=== PATIENT | male | born 1940 | race Caucasian/White ===

== ENCOUNTER 2018-02-04 23:33 | Inpatient (IN) | payer OTHER, MEDICARE ==
[~2018-02-04] VITALS: Ht 162.6 cm; Wt 63.8 kg
[~2018-02-04 23:33] MED LIST: NIFE60TA57 PO; PANT40TA PO; PRED10TA PO
[2018-02-04] MEDS ORDERED: SODIUM CHLORIDE 0.9% 1000ML 1,000 ML IV STA (23:48)
--- NOTE | 2018-02-04 23:49 | EMERGENCY ROOM VISIT NOTE ---
History Report prepared by Sandi: Tyrell Norman Under the Supervision of: Dr. Radha Marr D.O. First contact with patient: 23:42 Chief Complaint: GI ASSESSMENT Stated Complaint: HIP PAIN,BLOOD IN STOOL History of Present Illness The patient is a 77 year old male who presents to the Emergency Room with complaints of intermittent blood in his stool and black stools beginning three days ago. The patient states today he was extremely nauseous, fatigued, and vomited three times prior to arrival. He reports he vomited again in triage. The patient notes his vomit has been black. He states he has also been experiencing mild abdominal pain. The patient reports a history of black lung and he takes prednisone chronically. He notes he also took Excedrin on top of this. The patient states he thinks taking the Excedrin has causes his symptoms. He reports he has a history of vomiting blood, and he was diagnosed with a bleeding stomach ulcer. The patient notes he lost enough blood to need a transfusion. He states he had a history of stomach trouble for the past two years, and he has had a large amount of tests that were normal. The patient denies taking a blood thinner and aspirin. Patient states his first episode of GI bleed was in 1991. Patient denies taking a daily stomach medication. Review of EMR, patient had an admission in 2008 for GI bleed at which time his hemoglobin was 5.4. Source of History: patient Onset: three days ago Quality: other (blood in the stool and black stools) Timing: intermittent Associated Symptoms: + nausea, + vomiting (black), + abdominal pain, + fatigue Review of Systems See HPI for pertinent positives & negatives. A total of 10 systems reviewed and were otherwise negative. Past Medical & Surgical Medical Problems: (1) GI bleed Family History Patient reports no known family medical history. Social History Smoking Status: Never Smoker Current/Historical Medications Scheduled Fluticasone Prop/Salmeterol (Advair Diskus 100/50 60 Dose), 1 PUFF INH BID Prednisone (Prednisone), 10 MG PO DAILY Scheduled PRN Albuterol Hfa (Ventolin Hfa), 2-4 PUFFS INH Q6H PRN for SOB/Wheezing Albuterol Sulf (Proventil 0.083% 2.5MG/3ML), 2.5 MG INH QID PRN for SOB/Wheezing Prednisone (Prednisone), 10 MG PO UD PRN for breathing exacerbation Allergies Coded Allergies: Aspirin (Verified Allergy, Intermediate, HIVES, 02/05/18) Codeine (Verified Allergy, Unknown, "violently ill"., 02/05/18) Physical Exam Vital Signs Date Time Temp Pulse Resp B/P (MAP) Pulse Ox O2 Delivery O2 Flow Rate FiO2 02/05/18 03:14 98 02/05/18 02:54 96 18 95/61 95 Room Air 02/05/18 02:00 96 18 109/64 98 Room Air 02/05/18 01:45 95 18 123/75 95 Room Air 02/05/18 01:01 88 94/67 95 Room Air 02/05/18 00:45 89 18 93/46 94 Room Air 02/04/18 23:51 89 02/04/18 23:36 36.3 96 20 71/44 97 Room Air Physical Exam GENERAL: Pt is vomiting into a bag while being wheeled into the room. The contents are maroon and black. alert, well appearing, well nourished, no distress, non-toxic EYE EXAM: normal conjunctiva, PERRL and EOM's grossly intact OROPHARYNX: no exudate, no erythema, lips, buccal mucosa, and tongue normal and mucous membranes are moist NECK: supple, no nuchal rigidity, no adenopathy, non-tender LUNGS: Decreased breathe sounds, no wheezes, rhonchi, or rales. Normal chest wall mechanics HEART: no murmurs, S1 normal and S2 normal ABDOMEN: abdomen soft, mild generalized abdominal discomfort with no focal tenderness, normo-active bowel sounds, no masses, no rebound or guarding. BACK: Back is symmetrical on inspection and there is no deformity, no midline tenderness, no CVA tenderness. SKIN: Pale, diaphoretic, no rashes and no bruising UPPER EXTREMITIES: upper extremities are grossly normal. Full range of motion, normal pulses. LOWER EXTREMITIES: No pitting edema. Full range of motion, normal pulses. NEURO EXAM: Normal sensorium, cranial nerves II-XII grossly intact, normal speech, no gross weakness of arms, no gross weakness of legs. Medical Decision & Procedures ER Provider Diagnostic Interpretation: X-ray results have been interpreted by me. Chest One view: No cardiomegaly. No effusions. No wide mediastinum. Patchy bilateral infiltrate - improved compared to prior. Radiology results have been interpreted by the [facility] radiologist and reviewed by me. CTA ABDOMEN & PELVIS WITH CONTRAST: Impression: The celiac trunk, superior mesenteric artery, and inferior mesenteric artery are patent. The abdominal aorta demonstrates atherosclerotic calcification but otherwise appears normal. There is no definite evidence of active contrast extravasation. Colonic diverticulosis without definite evidence of diverticulitis. Numerous nodular opacities are seen in the lungs. Recommended correlation with prior thoracic imaging. If no prior imaging is available, consider dedicated chest CT. No evidence of bowel obstruction. Left total hip arthroplasty. Severe multilevel degenerative disc disease and facet arthrosis throughout the lumbar spine. Radiologist: Chico Addison MD Study ready at 0136 and initial results transmitted at 0200. Laboratory Results 02/04/18 23:56 Red Blood Count 2.90, Mean Corpuscular Volume 89.3, Mean Corpuscular Hemoglobin 29.7, Mean Corpuscular Hemoglobin Concent 33.2, Mean Platelet Volume 10.2, Neutrophils (%) (Auto) 73.9, Lymphocytes (%) (Auto) 20.5, Monocytes (%) (Auto) 4.3, Eosinophils (%) (Auto) 0.3, Basophils (%) (Auto) 0.1, Neutrophils # (Auto) 11.83, Lymphocytes # (Auto) 3.28, Monocytes # (Auto) 0.68, Eosinophils # (Auto) 0.05, Basophils # (Auto) 0.01 02/04/18 23:56 Test 02/04/18 23:47 02/04/18 23:56 02/05/18 00:00 Gastric Fluid pH 5-7 Gastric Fluid Occult Blood POS (NEG) White Blood Count 16.00 K/uL (4.8-10.8) Red Blood Count 2.90 M/uL (4.7-6.1) Hemoglobin 8.6 g/dL (14.0-18.0) Hematocrit 25.9 % (42-52) Mean Corpuscular Volume 89.3 fL (80-100) Mean Corpuscular Hemoglobin 29.7 pg (25-34) Mean Corpuscular Hemoglobin Concent 33.2 g/dl (32-36) Platelet Count 251 K/uL (130-400) Mean Platelet Volume 10.2 fL (7.4-10.4) Neutrophils (%) (Auto) 73.9 % Lymphocytes (%) (Auto) 20.5 % Monocytes (%) (Auto) 4.3 % Eosinophils (%) (Auto) 0.3 % Basophils (%) (Auto) 0.1 % Neutrophils # (Auto) 11.83 K/uL (1.4-6.5) Lymphocytes # (Auto) 3.28 K/uL (1.2-3.4) Monocytes # (Auto) 0.68 K/uL (0.11-0.59) Eosinophils # (Auto) 0.05 K/uL (0-0.5) Basophils # (Auto) 0.01 K/uL (0-0.2) RDW Standard Deviation 51.5 fL (36.4-46.3) RDW Coefficient of Variation 16.0 % (11.5-14.5) Immature Granulocyte % (Auto) 0.9 % Immature Granulocyte # (Auto) 0.15 K/uL (0.00-0.02) Red Blood Cell Morphology Unremarkable Prothrombin Time 11.4 SECONDS (9.0-12.0) Prothromb Time International Ratio 1.1 (0.9-1.1) Est Creatinine Clear Calc Drug Dose 50.7 ml/min Estimated GFR () 83.6 Estimated GFR (Non- 72.1 BUN/Creatinine Ratio 70.9 (10-20) Calcium Level 8.1 mg/dl (8.5-10.1) Magnesium Level 2.4 mg/dl (1.8-2.4) Total Bilirubin 0.4 mg/dl (0.2-1) Aspartate Amino Transf (AST/SGOT) 19 U/L (15-37) Alanine Aminotransferase (ALT/SGPT) 29 U/L (12-78) Alkaline Phosphatase 37 U/L (45-117) Pro-B-Type Natriuretic Peptide 2467 pg/ml (0-1800) Total Protein 5.1 gm/dl (6.4-8.2) Albumin 2.4 gm/dl (3.4-5.0) Globulin 2.7 gm/dl (2.5-4.0) Albumin/Globulin Ratio 0.9 (0.9-2) Lipase 263 U/L (73-393) Bedside Hemoglobin 8.2 g/dl (14.0-18.0) Bedside Hematocrit 24 % (42-52) Bedside Sodium 140 mEq/L (135-144) Bedside Potassium 4.2 mEq/L (3.3-5.0) Bedside Chloride 108 mEq/L (101-112) Bedside Total CO2 21 mEq/l (24-31) Anion Gap 16.0 mmol/L (16-25) Bedside Blood Urea Nitrogen 64 mg/dl (7-18) Bedside Creatinine 0.9 mg/dl (0.6-1.3) Bedside Glucose (other) 122 mg/dl (70-99) Bedside Ionized Calcium (Rafita) 1.18 mmol/l (1.12-1.32) Laboratory results per my review. Medications Administered Medications (Trade) Dose Ordered Sig/Cole Route Start Time Stop Time Status Last Admin Dose Admin Sodium Chloride 1,000 ml @ 125 mls/hr Q8H STAT IV 02/04/18 23:48 02/05/18 04:31 DC 02/04/18 23:55 125 MLS/HR Pantoprazole Sodium 80 mg/ Dextrose 120 ml @ 480 mls/hr NOW STAT IV 02/05/18 00:22 02/05/18 00:36 DC 02/05/18 00:38 480 MLS/HR Pantoprazole Sodium 40 mg/ Dextrose 100 ml @ 20 mls/hr Q5H IV 02/05/18 00:30 02/05/18 05:29 DC 02/05/18 00:54 20 MLS/HR ECG Per My Interpretation Indication: vomiting (black) Rate (beats per minute): 92 Rhythm: sinus rhythm Findings: Q waves (V1-V3), RBBB, T-wave inversion (AVL), no acute ischemic change, left axis deviation ED Course 2342: The patient was evaluated in room B11B. A complete history and physical exam was performed. 2348: Ordered Sodium Chloride 1000 ml @ 125 mls/hr IV 2357: I reevaluated the patient. His blood pressure has slightly improved to 93 systolically. 0009: The patient was finished getting undressed. His underwear had maroon, liquid stool in them. 0022: Ordered Pantoprazole Sodium 80mg/Dextrose 120ml @ 480 mls/hr IV 0030: Ordered Pantoprazole Sodium 40mg/Dextrose 100 ml @ 20mls/hr IV 0041: I reevaluated the patient. His blood pressure has improved and he is less pale. I discussed his current test results. 0159: Upon reevaluation, the patient is resting. I discussed the findings and the treatment plan with the patient. He expresses agreement and understanding. The patient will be evaluated for further management. Medical Decision Differential diagnosis includes etiologies such as diverticulosis, AVM, coagulopathy, colitis, inflammatory bowel disease, malignancy, Roxane-De Leon tear, esophagitis, peptic ulcer disease, variceal bleed, gastritis, epistaxis, fissure, hemorrhoids, as well as others were entertained. Patient here initially presenting very ill-appearing and unstable. Was hypotensive on arrival and was actively vomiting. Patient's blood pressure improved with IV fluids, and with improved blood pressure patient's color improved also. Given patient's age and comorbidities and abdominal pain, patient also sent for CT imaging. No other acute abnormalities noted. Given patient's prior episodes of GI bleed secondary to peptic ulcer disease, presentation today with melena and hematemesis, I feel patient likely has a recurrence of an upper GI bleed. Patient started on Protonix bolus and drip, and a type and screen sent. Patient found to have an elevated troponin likely due to demand ischemia. I do not suspect primary ACS. Patient and family aware of her results and need for additional evaluation and were agreeable with plan. Patient hemodynamically stable upon transport out of the emergency room. Medication Reconcilliation Current Medication List: was personally reviewed by me Blood Pressure Screening Patient's blood pressure: Low blood pressure Monitored by hospitalist. Consults Time Called: 015 Consulting Physician: Dr. Alejandre of the [facility] Hospitalist Service Returned Call: [phone] Alejandre of the [facility] Hospitalist Service. The patient will be evaluated for further management. Impression Primary Impression: GI bleed Additional Impressions: Abdominal pain Anemia Dehydration Elevated troponin Critical Care I have personally spent greater than 60 minutes of critical care time in the direct management of this patient. This includes bedside care, interpretation of diagnostic studies, and testing, discussion with consultants, patient, and family members, and other required patient management activities. This 60 minutes is in excess of all separately billable procedures. Scribe Attestation The scribe's documentation has been prepared under my direction and personally reviewed by me in its entirety. I confirm that the note above accurately reflects all work, treatment, procedures, and medical decision making performed by me. Departure Information Dispostion Being Evaluated By Hospitalist Referrals No Doctor, Assigned (PCP) Patient Instructions My [facility] Problem Qualifiers Primary Impression: GI bleed GI bleed type/associated pathology: unspecified gastrointestinal hemorrhage type Qualified Codes: K92.2 - Gastrointestinal hemorrhage, unspecified Additional Impressions: Abdominal pain Abdominal location: generalized Qualified Codes: R10.84 - Generalized abdominal pain Anemia Anemia type: other cause Other causes of anemia: acute posthemorrhagic Qualified Codes: D62 - Acute posthemorrhagic anemia
[2018-02-05] VITALS (19 sets, daily range): BP systolic 91–106; BP diastolic 49–63; PULSE 86–96; TEMP 36.6–37.6; O2SAT 93–100; Ht 162.6 cm; Wt 63.8 kg
[2018-02-05 00:06] LABS: BASO % 0.1 %; BASO ABS # 0.01 K/uL (0-0.2); EOS % 0.3 %; EOS ABS # 0.05 K/uL (0-0.5); HEMATOCRIT 25.9 % (42-52); HEMOGLOBIN 8.6 g/dL (14.0-18.0); IG# 0.15 K/uL (0.00-0.02); LYMPH % 20.5 %; LYMPH ABS # 3.28 K/uL (1.2-3.4); MEAN CELL VOLUME 89.3 fL (80-100); MEAN CORPUSCULAR HEMOGLOBIN 29.7 pg (25-34); MEAN CORPUSCULAR HGB CONC 33.2 g/dl (32-36); MEAN PLATELET VOLUME 10.2 fL (7.4-10.4); MONO % 4.3 %; MONO ABS # 0.68 K/uL (0.11-0.59); NEUT % 73.9 %; NEUT ABS # 11.83 K/uL (1.4-6.5); PLATELET COUNT 251 K/uL (130-400); RED CELL DISTRIBUTION WIDTH SD 51.5 fL (36.4-46.3)
[2018-02-05 00:18] LABS: INR 1.1 (0.9-1.1)
[2018-02-05] MEDS ORDERED: PANTOprazole INJ 80 MG in DEXTROSE 5% 100ML IV STA (00:22)
[2018-02-05] MEDS ORDERED: PANTOprazole INJ 40 MG in DEXTROSE 5% 100ML IV SCH (00:30)
[2018-02-05] MEDS ORDERED: OPTIRAY 320 IV PRN (00:30)
[2018-02-05 00:32] LABS: ALBUMIN 2.4 gm/dl (3.4-5.0); CALCIUM 8.1 mg/dl (8.5-10.1); CREATININE 0.99 mg/dl (0.60-1.40); POTASSIUM 4.3 mmol/L (3.5-5.1); TOTAL PROTEIN 5.1 gm/dl (6.4-8.2)
[2018-02-05] MEDS ORDERED: PRED10TA PO (00:42)
[2018-02-05] MEDS ORDERED: ADVIN10/60 INH (00:43)
[2018-02-05] MEDS ORDERED: VNTHFA/IN INH (00:43)
[2018-02-05] MEDS ORDERED: ALBINS/ INH (00:44)
[2018-02-05 03:05] LABS: ISTAT CREATININE 0.9 mg/dl (0.6-1.3); ISTAT IONIZED CALCIUM 1.18 mmol/l (1.12-1.32); ISTAT POTASSIUM 4.2 mEq/L (3.3-5.0)
[2018-02-05] MEDS ORDERED: POLYETHYLENE (MIRALAX) 17 GM PACK PO PRN (03:15)
[2018-02-05] MEDS ORDERED: ONDANSETRON INJ 2 MG/ML 2 ML VIAL IV PRN (03:15)
[2018-02-05] MEDS ORDERED: MAGNESIUM HYDROXIDE SUSP 30 ML UDC PO PRN (03:15)
[2018-02-05] MEDS ORDERED: ZOLPIDEM TARTRATE 5 MG TAB PO PRN (03:15)
[2018-02-05] MEDS ORDERED: ACETAMINOPHEN 325 MG TAB PO PRN (03:15)
[2018-02-05] MEDS ORDERED: ALUMINUM/MAGNESIUM/SIMETH (MAALOX MAX) 30 ML UDC PO PRN (03:15)
[2018-02-05] MEDS ORDERED: ALBUTEROL 0.083% NEBU SOLN 3 ML VIAL INH PRN (03:30)
--- NOTE | 2018-02-05 03:47 | History and Physical ---
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 He has been so week he has been unable to stand. Patient states that he has had at least two other known GI bleeding episodes in the past. In November 2017 in [facility] he received an upper endoscopy for dysphagia that showed a non bleeding peptic ulcer. Pt states he has been diagnosed with Art Therapy Specialist's Lung and is on daily Prednisone. His prednisone has recently been increased. He is not on a PPI or any GI Prophylaxis. Pt does deny any heartburn or GERD type symptoms. His primary and specialist care has been mostly through [facility]. On the way to the ER pt states he threw up what he thought was dark blood. ROS: No fevers, no chills. He did lose some weight recently (20lbs) but gained it back. SHx: Quit smoking in the . Accompanied by son and . Past Medical/Surgical History Medical Problems: (1) GI bleed Family History Patient reports no known family medical history. Social History Smoking Status: Never Smoker Smokeless Tobacco Use: No Alcohol Use: none Drug Use: none Occupational Status: retired Immunizations History of Influenza Vaccine: No Influenza Vaccine Date: Jun 28, 2009 History of Tetanus Vaccine?: No History of Pneumococcal: Yes Pneumococcal Date: Jun 28, 2009 History of Hepatitis B Vaccine: No Allergies Coded Allergies: Aspirin (Verified Allergy, Intermediate, HIVES, 02/05/18) Codeine (Verified Allergy, Unknown, "violently ill"., 02/05/18) Home Medications Scheduled Fluticasone Prop/Salmeterol (Advair Diskus 100/50 60 Dose), 1 PUFF INH BID Prednisone (Prednisone), 10 MG PO DAILY Scheduled PRN Albuterol Hfa (Ventolin Hfa), 2-4 PUFFS INH Q6H PRN for SOB/Wheezing Albuterol Sulf (Proventil 0.083% 2.5MG/3ML), 2.5 MG INH QID PRN for SOB/Wheezing Prednisone (Prednisone), 10 MG PO UD PRN for breathing exacerbation Review of Systems Constitutional: No fever ENT: No hearing loss Respiratory: + cough, + shortness of breath, + dyspnea on exertion Cardiovascular: No chest pain, No orthopnea Abdomen: No pain, No nausea, No diarrhea Musculoskeletal: No joint pain Genitourinary - Male: No hematuria Physical Exam Vital Signs Date Time Temp Pulse Resp B/P (MAP) Pulse Ox O2 Delivery O2 Flow Rate FiO2 02/05/18 03:14 98 02/05/18 02:54 96 18 95/61 95 Room Air 02/05/18 02:00 96 18 109/64 98 Room Air 02/05/18 01:45 95 18 123/75 95 Room Air 02/05/18 01:01 88 94/67 95 Room Air 02/05/18 00:45 89 18 93/46 94 Room Air 02/04/18 23:51 89 02/04/18 23:36 36.3 96 20 71/44 97 Room Air General Appearance: WD/WN, no apparent distress, + thin Head: normocephalic, atraumatic Eyes: normal inspection, PERRL, EOMI ENT: normal ENT inspection, hearing grossly normal, pharynx normal Neck: supple, no adenopathy Respiratory/Chest: chest non-tender, no respiratory distress, no accessory muscle use, + pertinent finding (rhonchorous lung sounds on the right side) Cardiovascular: regular rate, rhythm, no edema, no gallop, no JVD, no murmur, normal peripheral pulses Abdomen/GI: normal bowel sounds, non tender, soft, no organomegaly, no pulsatile mass, normal rectal exam, occult blood negative Back: normal inspection, no CVA tenderness Extremities/Musculoskelatal: normal inspection, no calf tenderness, normal capillary refill, no pedal edema, normal range of motion Neurologic/Psych: inspector 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 tested, no motor/sensory deficits, alert, normal mood/affect, normal reflexes, oriented x 3 Diagnostics Laboratory Results Results Past 24 Hours Test 02/04/18 23:47 02/04/18 23:56 02/05/18 00:00 Range/Units Gastric Fluid pH 5-7 Gastric Fluid Occult Blood POS NEG White Blood Count 16.00 4.8-10.8 K/uL Red Blood Count 2.90 4.7-6.1 M/uL Hemoglobin 8.6 14.0-18.0 g/dL Hematocrit 25.9 42-52 % Mean Corpuscular Volume 89.3 80-100 fL Mean Corpuscular Hemoglobin 29.7 25-34 pg Mean Corpuscular Hemoglobin Concent 33.2 32-36 g/dl Platelet Count 251 130-400 K/uL Mean Platelet Volume 10.2 7.4-10.4 fL Neutrophils (%) (Auto) 73.9 % Lymphocytes (%) (Auto) 20.5 % Monocytes (%) (Auto) 4.3 % Eosinophils (%) (Auto) 0.3 % Basophils (%) (Auto) 0.1 % Neutrophils # (Auto) 11.83 1.4-6.5 K/uL Lymphocytes # (Auto) 3.28 1.2-3.4 K/uL Monocytes # (Auto) 0.68 0.11-0.59 K/uL Eosinophils # (Auto) 0.05 0-0.5 K/uL Basophils # (Auto) 0.01 0-0.2 K/uL RDW Standard Deviation 51.5 36.4-46.3 fL RDW Coefficient of Variation 16.0 11.5-14.5 % Immature Granulocyte % (Auto) 0.9 % Immature Granulocyte # (Auto) 0.15 0.00-0.02 K/uL Red Blood Cell Morphology Unremarkable Prothrombin Time 11.4 9.0-12.0 SECONDS Prothromb Time International Ratio 1.1 0.9-1.1 Sodium Level 142 136-145 mmol/L Potassium Level 4.3 3.5-5.1 mmol/L Chloride Level 111 98-107 mmol/L Carbon Dioxide Level 21 21-32 mmol/L Anion Gap 10.0 16.0 16-25 mmol/L Blood Urea Nitrogen 70 7-18 mg/dl Creatinine 0.99 0.60-1.40 mg/dl Est Creatinine Clear Calc Drug Dose 50.7 ml/min Estimated GFR () 83.6 Estimated GFR (Non- 72.1 BUN/Creatinine Ratio 70.9 10-20 Random Glucose 121 70-99 mg/dl Calcium Level 8.1 8.5-10.1 mg/dl Magnesium Level 2.4 1.8-2.4 mg/dl Total Bilirubin 0.4 0.2-1 mg/dl Aspartate Amino Transf (AST/SGOT) 19 15-37 U/L Alanine Aminotransferase (ALT/SGPT) 29 12-78 U/L Alkaline Phosphatase 37 45-117 U/L Troponin I 0.080 0-0.045 ng/ml Pro-B-Type Natriuretic Peptide 2467 0-1800 pg/ml Total Protein 5.1 6.4-8.2 gm/dl Albumin 2.4 3.4-5.0 gm/dl Globulin 2.7 2.5-4.0 gm/dl Albumin/Globulin Ratio 0.9 0.9-2 Lipase 263 73-393 U/L Bedside Hemoglobin 8.2 14.0-18.0 g/dl Bedside Hematocrit 24 42-52 % Bedside Sodium 140 135-144 mEq/L Bedside Potassium 4.2 3.3-5.0 mEq/L Bedside Chloride 108 101-112 mEq/L Bedside Total CO2 21 24-31 mEq/l Bedside Blood Urea Nitrogen 64 7-18 mg/dl Bedside Creatinine 0.9 0.6-1.3 mg/dl Bedside Glucose (other) 122 70-99 mg/dl Bedside Ionized Calcium (Rafita) 1.18 1.12-1.32 mmol/l Impression Assessment and Plan 77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 Started on a PPI Drip. GI consulted. Upper GI Bleed (HgB of 8.6-->8.2) Patient was recently scoped in [facility] in November and was told he had non bleeding resolving peptic ulcer. He has recently increased his steroids for his lung disease and doesn't take a PPI. 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 IV PPI Drip. Appreciate GI Recs (Yash last saw pt in 2008 and are reconsulted). NPO + IVF H&H Q6H. Art Therapy Specialist's Lung Not on O2 at home. No Oxygen requirement here. X-ray results show numerous chronic fibrotic lung changes - will get a Chest CT. Duonebs Q6H Scheduled. + Albuterol PRN, Pulmicort BID. Per discussion with Attending will add on IV Hydrocort 100mg Q8 x 3 days and Rocephin for empiric Abx treatment of Pneumonia, follow up gram stain and culture of sputum. Elevated Troponins Likely 2/2 to demand, will repeat at 6am. Dispo: Admit to tele. DVT Proph: SCDs Diet: NPO + IVF of 75mls/hr , FULL CODE Attending addendum: I have physically seen this patient, have supervised the medical residents activities, and agree with the H&P unless as otherwise noted. Assessment and Plan: Upper GI bleed/anemia-- N.p.o. Present GI bleeding likely caused by increased oral prednisone use. Continue Protonix drip begun in the ED. H&H every 6 hours. NSS at 75 mils per hour. Type and screen, does not need transfusions at this time. Consult gastroenterology. 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 Differential includes granulomatous disease versus primary lung malignancy versus metastatic disease. Consult pulmonology. Duonebs every 6 hours while awake and every 2 hours when necessary Vancomycin IV and Zosyn IV per pharmacokinetic monitoring. Sputum Gram stain and culture. Adrenal insufficiency-- Hold oral prednisone. Placed on stress dose hydrocortisone 100 mg IV every 8 hours. Remainder of orders and notes as above. Advanced Directives Existing Advance Directive: No Existing Living Will: No Existing Power of Sales Development Associate: No Resuscitation Status VTE Prophylaxis Will order VTE Prophylaxis: Yes Resident Involvement: Resident Care Provided Care Provided: Adult Hospital Medicine
[2018-02-05] MEDS: SODIUM CHLORIDE 0.9% 1000ML 1,000 ML IV SCH ×2 (05:09→17:03)
[2018-02-05] MEDS: PANTOprazole INJ 40 MG in DEXTROSE 5% 100ML IV SCH ×4 (05:09→21:42)
[2018-02-05] MEDS ORDERED: VANCOMYCIN CONSULT ACTIVE PRN (05:30)
[2018-02-05] MEDS ORDERED: VANCOMYCIN IV 1,000 MG in SODIUM CHLORIDE 0.9% 250ML 250 ML IV STA (05:30)
[2018-02-05] MEDS ORDERED: PIPERACILL/TAZOBAC CONSULT ACTIVE PRN (05:30)
[2018-02-05] MEDS ORDERED: PIPERACILL/TAZOBAC IV 3.375 GM in D5W 100 ML IV ONE (06:00)
[2018-02-05] MEDS ORDERED: VANCOMYCIN IV 1,500 MG in SODIUM CHLORIDE 0.9% 500ML 500 ML IV SCH (06:00)
[2018-02-05] MEDS ORDERED: PIPERACILL/TAZOBAC IV 3.375 GM in DEXTROSE 5% 100ML 100 ML IV SCH (06:00)
[2018-02-05] MEDS ORDERED: CEFTRIAXONE SOD INJ 1 GM in DEXTROSE 5% ADD-VANTAGE 50ML 50 ML IV SCH (06:00)
--- NOTE | 2018-02-05 06:35 | DIAGNOSTIC IMAGING REPORT ---
CHEST ONE VIEW PORTABLE CLINICAL HISTORY: 77 years-old Male presenting with vomiting. TECHNIQUE: Portable upright AP view of the chest was obtained. COMPARISON: Chest x-ray from 06/27/2009. FINDINGS: Cardiomediastinal silhouette normal. Diffusely heterogeneous lung parenchyma. Upper to mid predominant nodular opacities. Superimposed focal masslike opacity in the left upper lung, which was present on prior exam. Less well-defined masslike opacity in the right upper lung. No large effusion or pneumothorax. Evidence of old right rib fractures. Degenerative changes of the spine. IMPRESSION: 1. Chronic upper lobe predominant infiltrates with masslike upper lobe consolidation. 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 Please see separately dictated CT chest. Background emphysematous changes. No superimposed opacity to suggest pneumonia. Electronically signed by: Marek Marina M.D. 02/05/2018 6:34 AM Dictated Date/Time: 02/05/2018 6:30 AM
--- NOTE | 2018-02-05 07:03 | DIAGNOSTIC IMAGING REPORT ---
ANGIO ABD/PELVIS WITH CONTRAST CLINICAL HISTORY: 77 years-old Male presenting with bloody and black tarry stools, diffuse abdominal pain, nausea and vomiting. TECHNIQUE: Multidetector CT angiography of the abdomen and pelvis was performed after the administration of intravenous contrast. 3-D volumetric and/or maximum intensity projection (MIP) images were subsequently reconstructed for review. IV contrast: 93 mL of Optiray 320. A dose lowering technique was used consistent with the principles of ALARA (as low as reasonably achievable). Stenosis measurements were based on NASCET-like criteria. COMPARISON: None. CT DOSE (mGy.cm): The estimated cumulative dose is 304.82 mGy.cm. 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 Vasculature: Abdominal aorta and major branch vessels widely patent. Calcified atherosclerotic plaque in the proximal aspect of the more inferior left renal artery without significant stenosis. 2 renal arteries are noted bilaterally. Bilateral common, internal, and external iliac arteries widely patent. Common, superficial, and deep femoral arteries also patent in their proximal portions. Conventional hepatic arterial anatomy. Allowing for the single phase of contrast no evidence of active extravasation within the bowel lumen or elsewhere. Remaining abdomen and pelvis: Lung bases: Diffuse nodular opacities on background of emphysema. This is more fully characterized on chest CT. Normal heart size. No pericardial or pleural effusion. Liver: Normal morphology. No lesions allowing for early arterial phase of contrast. Patent hepatic artery. Biliary: No gross evidence of biliary ductal dilatation allowing for the phase of contrast. Normal gallbladder. Pancreas: Normal. Spleen: Lobular hypodensity in the spleen possibly lymphangioma or hamartoma. Adrenal glands: Normal. Kidneys and ureters: Normal. No hydronephrosis. Bladder: Normal. Pelvic organs: Prostate enlargement likely secondary to benign prostatic hyperplasia. Bowel: Limited diverticulosis of the proximal sigmoid colon. No pericolonic inflammatory change. Few diverticula also noted in the descending colon. Hyperdense linear focus in the ascending colon immediately proximal to the hepatic flexure (series real image 184). Few additional similar foci noted in the mid ascending colon (series 3 image 206). Density as intravascular contrast and are intimately associated with the bowel wall. These foci are the same No bowel obstruction. Small hiatal hernia. Peritoneal cavity: No free fluid or intraperitoneal gas. Lymph nodes: No enlarged lymph nodes in the abdomen or pelvis. Abdominal wall: Normal. Musculoskeletal: Postsurgical changes of total left hip arthroplasty. Mild degenerative changes of the right hip. Degenerative changes of the sacroiliac joints and spine. IMPRESSION: 1. Few small foci of hyperdensity in the ascending colon raise concern for foci of angiodysplasia. Evaluation for hemorrhage limited by the single phase of contrast. No other sites of possible extravasation. This finding was not discussed on the preliminary report. 2. Chronic lung disease characterized on chest CT. Please see separately dictated report. 3. Prostatomegaly. The report will be called/faxed according to standard departmental protocol. Electronically signed by: Marek Marina M.D. 02/05/2018 7:02 AM Dictated Date/Time: 02/05/2018 6:51 AM
[2018-02-05] MEDS: BUDESONIDE 0.5 MG/2 ML VIAL (PULMICORT) INH SCH ×2 (07:08→19:22)
[2018-02-05] MEDS: ALBUT/IPRATROP 3MG/0.5MG NEB 3 ML VIAL INH SCH ×3 (07:08→19:22)
[2018-02-05 07:23] LABS: HEMATOCRIT 19.6 % (42-52); HEMOGLOBIN 6.5 g/dL (14.0-18.0)
[2018-02-05] MEDS ORDERED: SODIUM CHLORIDE 0.9% 500ML 500 ML IV ONE (07:30)
[2018-02-05] MEDS: FLUTICASONE/SALMETEROL 100/50 (ADVAIR) 14 PUFF/1 INHALER INH SCH ×2 (08:01→20:24)
--- NOTE | 2018-02-05 08:25 | Pharmacy Progress Note ---
Pharmacy Abx Dose Short Note Date of Service Feb 05, 2018. Assessment & Plan A/P Pt being initiated on Vanco/Zosyn for r/o pulmonary source. MRSA nares and sputum cx both currently pending at this juncture. Vanco: He did receive Vanco 1500mg (26mg/kg) loading dose this AM at 0600. Pt population p'kinetics; t1/2=15hrs, ke=0.0467. Will start Vanco 750mg (13mg/kg) q16. Will use slightly aggressive dosing interval due to smaller mg/kg dose. Will also start maintenance dose 2 hours early. Vanco trough ordered for @0130, prior to the third maintenance dose. Goal trough: 15-20mcg/mL for pulmonary source. Zosyn: Appropriately dosed based on pt's clinical picture and renal fxn. Pharmacy will continue to follow and will adjust dose/frequency as necessary. Thank you.
--- NOTE | 2018-02-05 08:29 | DIAGNOSTIC IMAGING REPORT ---
(CHEST) THORAX WITHOUT CLINICAL HISTORY: 77 years-old Male presenting with abnormal CXR and CT abdomen/pelvis. TECHNIQUE: Multidetector CT imaging of the chest was performed without the use of intravenous contrast. IV contrast: None. A dose lowering technique was used consistent with the principles of ALARA (as low as reasonably achievable). COMPARISON: Chest x-ray from 2009. CT DOSE (mGy.cm): The estimated cumulative dose is 213.10 mGy.cm. 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 Bilateral upper lobe predominant dense opacities on the left. On soft tissue windows, 13 mm slightly hypodense nodule in the right lobe of the thyroid. Bilateral gynecomastia. Prominent subcentimeter mediastinal lymph nodes. These do not demonstrate calcification. Evaluation of the yumiko limited due to lack of intravenous contrast. Atherosclerosis of the aorta. Normal heart size. Minimal coronary artery and aortic valve calcification. No pericardial or pleural effusion. Excreted contrast noted in the bilateral urinary collecting systems. On lung windows, emphysema. Masslike consolidation in the upper lobes with internal calcification. Diffuse central predominant nodular opacities involving both lungs. Extensive architectural distortion indicating scarring. Bronchiectasis evident within areas of consolidation. Central airways patent. On bone windows, degenerative changes of the spine. Evidence of old bilateral rib fractures. Degenerative changes of the glenohumeral joints. IMPRESSION: 1. 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 This is most consistent with silicosis given the presence of calcification within the massive fibrosis. Other diagnostic considerations include pneumoconiosis or respiratory talcosis. 2. Background emphysema. 3. 13 mm right thyroid lobe nodule. This could be further evaluated with ultrasound on a nonurgent basis. Electronically signed by: Marek Marina M.D. 02/05/2018 8:28 AM Dictated Date/Time: 02/05/2018 8:22 AM
--- NOTE | 2018-02-05 08:53 | Family Medicine Progress Note ---
Progress Note Date of Service Feb 05, 2018. Subjective Pt evaluation today including: conversation w/ patient Voiding: no voiding problems Feels okay as long as laying in bed Short of breath , light headed with activity. Has a history of GI bleeds, stomach issues (has been scoped a few times per patient and only recent identified a non bleeding ulcer) Constitutional: + weakness, + fatigue, No fever, No chills, No sweats, No weight loss ENT: No hearing loss Respiratory: No cough, No sputum, No wheezing, No shortness of breath, No dyspnea on exertion Cardiovascular: No chest pain Abdomen: No pain, No nausea, No diarrhea Male : No dysuria, No urinary frequency Heme: + abnormal bleeding/bruising, No night sweats Medications Medications (Trade) Dose Ordered Sig/Cole Route Start Time Stop Time Status Last Admin Dose Admin Sodium Chloride 1,000 ml @ 125 mls/hr Q8H STAT IV 02/04/18 23:48 02/05/18 04:31 DC 02/04/18 23:55 125 MLS/HR Pantoprazole Sodium 80 mg/ Dextrose 120 ml @ 480 mls/hr NOW STAT IV 02/05/18 00:22 02/05/18 00:36 DC 02/05/18 00:38 480 MLS/HR Pantoprazole Sodium 40 mg/ Dextrose 100 ml @ 20 mls/hr Q5H IV 02/05/18 00:30 02/05/18 05:29 DC 02/05/18 00:54 20 MLS/HR Sodium Chloride 1,000 ml @ 75 mls/hr [id number] IV 02/05/18 05:00 03/07/18 04:59 02/05/18 05:09 75 MLS/HR Salmeterol Xinafoate/ Fluticasone (Advair Diskus 100/50 Inh) 1 puff BID INH 02/05/18 09:00 03/07/18 08:59 02/05/18 08:01 1 PUFF Albuterol/ Ipratropium (Duoneb) 3 ml Q6R INH 02/05/18 09:00 03/07/18 08:59 02/05/18 07:08 3 ML Budesonide (Pulmicort Respules 0.5MG/ 2ML Neb Soln) 0.5 mg BIDR INH 02/05/18 08:00 8/13/18 07:59 02/05/18 07:08 0.5 MG Pantoprazole Sodium 40 mg/ Dextrose 100 ml @ 20 mls/hr Q5H IV 02/05/18 05:30 03/07/18 05:29 02/05/18 05:09 20 MLS/HR Vancomycin HCl 1500 mg/Sodium Chloride 530 ml @ 200 mls/hr TODAY@0600 IV 02/05/18 06:00 02/05/18 08:38 02/05/18 05:57 200 MLS/HR Piperacillin Sod/ Tazobactam Sod 3.375 gm/Dextrose 115 ml @ 230 mls/hr NOW ONCE IV 02/05/18 06:00 02/05/18 06:29 DC 02/05/18 05:58 230 MLS/HR Sodium Chloride 500 ml @ 999 mls/hr Q31M ONCE IV 02/05/18 07:30 02/05/18 08:00 DC 02/05/18 07:56 999 MLS/HR Objective Vital Signs Date Time Temp Pulse Resp B/P (MAP) Pulse Ox O2 Delivery O2 Flow Rate FiO2 02/05/18 07:08 90 16 98 Room Air 02/05/18 06:56 36.6 89 24 94/57 (69) 98 Room Air 02/05/18 05:18 36.6 96 20 95/63 98 Room Air 02/05/18 04:00 96 18 92/59 95 Room Air 02/05/18 03:14 98 02/05/18 02:54 96 18 95/61 95 Room Air 02/05/18 02:00 96 18 109/64 98 Room Air 02/05/18 01:45 95 18 123/75 95 Room Air 02/05/18 01:01 88 94/67 95 Room Air 02/05/18 00:45 89 18 93/46 94 Room Air 02/04/18 23:51 89 02/04/18 23:36 36.3 96 20 71/44 97 Room Air Physical Exam General Appearance: no apparent distress Eyes: PERRL, EOMI ENT: hearing grossly normal Neck: no adenopathy, no JVD Respiratory/Chest: lungs clear, normal breath sounds, no respiratory distress, no accessory muscle use Cardiovascular: regular rate, rhythm, no edema, no murmur Abdomen: normal bowel sounds, non tender, soft Extremities: non-tender, normal inspection, no pedal edema, no calf tenderness Neurologic/Psychiatric: no motor/sensory deficits, alert, normal mood/affect, oriented x 3 Laboratory Results Last 24 Hours Test 02/04/18 23:47 02/04/18 23:56 02/05/18 00:00 02/05/18 06:47 Gastric Fluid pH 5-7 Gastric Fluid Occult Blood POS White Blood Count 16.00 K/uL Red Blood Count 2.90 M/uL Hemoglobin 8.6 g/dL 6.5 g/dL Hematocrit 25.9 % 19.6 % Mean Corpuscular Volume 89.3 fL Mean Corpuscular Hemoglobin 29.7 pg Mean Corpuscular Hemoglobin Concent 33.2 g/dl Platelet Count 251 K/uL Mean Platelet Volume 10.2 fL Neutrophils (%) (Auto) 73.9 % Lymphocytes (%) (Auto) 20.5 % Monocytes (%) (Auto) 4.3 % Eosinophils (%) (Auto) 0.3 % Basophils (%) (Auto) 0.1 % Neutrophils # (Auto) 11.83 K/uL Lymphocytes # (Auto) 3.28 K/uL Monocytes # (Auto) 0.68 K/uL Eosinophils # (Auto) 0.05 K/uL Basophils # (Auto) 0.01 K/uL RDW Standard Deviation 51.5 fL RDW Coefficient of Variation 16.0 % Immature Granulocyte % (Auto) 0.9 % Immature Granulocyte # (Auto) 0.15 K/uL Red Blood Cell Morphology Unremarkable Prothrombin Time 11.4 SECONDS Prothromb Time International Ratio 1.1 Sodium Level 142 mmol/L Potassium Level 4.3 mmol/L Chloride Level 111 mmol/L Carbon Dioxide Level 21 mmol/L Anion Gap 10.0 mmol/L 16.0 mmol/L Blood Urea Nitrogen 70 mg/dl Creatinine 0.99 mg/dl Est Creatinine Clear Calc Drug Dose 50.7 ml/min Estimated GFR () 83.6 Estimated GFR (Non- 72.1 BUN/Creatinine Ratio 70.9 Random Glucose 121 mg/dl Calcium Level 8.1 mg/dl Magnesium Level 2.4 mg/dl Total Bilirubin 0.4 mg/dl Aspartate Amino Transf (AST/SGOT) 19 U/L Alanine Aminotransferase (ALT/SGPT) 29 U/L Alkaline Phosphatase 37 U/L Troponin I 0.080 ng/ml 0.304 ng/ml Pro-B-Type Natriuretic Peptide 2467 pg/ml Total Protein 5.1 gm/dl Albumin 2.4 gm/dl Globulin 2.7 gm/dl Albumin/Globulin Ratio 0.9 Lipase 263 U/L Bedside Hemoglobin 8.2 g/dl Bedside Hematocrit 24 % Bedside Sodium 140 mEq/L Bedside Potassium 4.2 mEq/L Bedside Chloride 108 mEq/L Bedside Total CO2 21 mEq/l Bedside Blood Urea Nitrogen 64 mg/dl Bedside Creatinine 0.9 mg/dl Bedside Glucose (other) 122 mg/dl Bedside Ionized Calcium (Rafita) 1.18 mmol/l Assessment and Plan 77M with a 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 Upper GI Bleed (HgB of 8.6-->8.2 -->6.5) Patient was recently scoped in [facility] in November and was told he had non bleeding resolving peptic ulcer. He has recently increased his steroids for his lung disease and doesn't take a PPI. transfusion of 2 units in progress this morning IV PPI Drip. Appreciate GI Recs (Yash last saw pt in 2008 and are reconsulted). NPO + IVF (bolus due to slight hypotension) H&H Q6H. H/O Pneumoconiosis (metal miner blasting) Not on O2 at home. No Oxygen requirement here. X-ray results show numerous chronic fibrotic lung changes - Chest CT report pending Duonebs Q6H Scheduled. + Albuterol PRN, Pulmicort BID. consider addition of atrovent at discharge Takes prednisone 10 mg daily at home - has missed 3 days worth Patient was placed on stress doses of IV hydrocortisone- appropriate for 24-48 hours Not convinced that the patient has pneumonia (Chest CT report does not show any consolidation though does have significant fibrosis; will dc Abx ) Elevated Troponins Likely 2/2 to demand, 0.08 --> 0.3, continue to trend Repeat EKG Asymptomatic Dispo: Remain on TELE DVT Proph: SCDs Diet: NPO + IVF , FULL CODE Resident Physician Supervision Note: I interviewed and examined the patient. Discussed with Dr. Palomo and agree with findings and plan as documented in the note. Any exceptions or clarifications are listed here: None Documented By: Abram Ace feeling ok no cp no sob not lightheaded as long as laying down gi input appreciated - for now anticipate scope later vitals noted nad breathing unlabored no pallor or icterus no epigastric ttp no guarding no reboun gi bleeding with acute blood loss anemia - presumed UGI source - requiring transfusions, protonix gtt. follow closely elevated troponin - almost certainly demand ischemia from above - treat above, supportive care. consider outpt stress depending on progress/symptoms - but appearing to be entirely secondary "fallout" from GI bleeding/acute blood loss anemia creating demand (and reducing oxygen supply) rather than a second primary process
[2018-02-05] MEDS: HYDROCORTISONE IV 100 MG in SYRINGE 0 ML IV SCH ×3 (09:00→20:24)
--- NOTE | 2018-02-05 09:35 | Gastrointestinal Consultation ---
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 He is not having any further hematemesis since admission. He has not noticed dark stools since admission. He is not having any chest pain, nausea, vomiting at this time. 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 Admission vitals significant for a slightly low bp but he says it is always low. He has had a drop in his hemoglobin 8.6 to 6.5, receiving blood this am. On PPI infusion. Labs otherwise siginifcant for a rising troponin. CT angio and CT chest reviewed. On empiric vancomycin/zosyn. 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 Social History Smoking Status: Former Smoker Drug Use: none Occupation Status: retired Allergies Coded Allergies: Aspirin (Verified Allergy, Intermediate, HIVES, 02/05/18) Codeine (Verified Allergy, Unknown, "violently ill"., 02/05/18) Current Medications Home Meds and Scripts Medications Dose Route/Sig Max Daily Dose Days Date Category Dose Instructions Proventil 0.083% 2.5MG/3ML (Albuterol Sulf) 2.5 Mg/3 Ml Nebu 2.5 Mg INH QID PRN 02/05/18 Reported Advair Diskus 100/50 60 Dose (Fluticasone Prop/Salmeterol) Unknown Strength Aerp 1 Puff INH BID 02/05/18 Reported Ventolin Hfa (Albuterol) 200 Puffs/57304 Mcg Aers 2-4 Puffs INH Q6H PRN 02/05/18 Reported Prednisone 10 Mg Tab 10 Mg PO UD PRN 02/05/18 Reported may take additional prednisone up to 40mg per day for 3 days then decrease to 30mg for 3 days,20mg for 3 days then 10mg for 3 days Prednisone 10 Mg Tab 10 Mg PO DAILY 06/27/09 Reported Review of Systems Constitutional: No fever, No chills, No sweats Eyes: No worsening of vision, No eye pain, No redness, No discharge ENT: No hearing loss, No unusual epistaxis, No nasal symptoms Respiratory: No cough, No sputum Cardiac: No chest pain, No orthopnea, No PND Abdomen: No pain, No nausea, No vomiting Musculoskeletal: No joint pain Male : No dysuria, No urinary frequency Neuro: No memory loss, No paralysis Endo: No fatigue Skin: No rash, No itch Physical Exam Date Time Temp Pulse Resp B/P (MAP) Pulse Ox O2 Delivery O2 Flow Rate FiO2 02/05/18 07:08 90 16 98 Room Air 02/05/18 06:56 36.6 89 24 94/57 (69) 98 Room Air 02/05/18 05:18 36.6 96 20 95/63 98 Room Air 02/05/18 04:00 96 18 92/59 95 Room Air 02/05/18 03:14 98 02/05/18 02:54 96 18 95/61 95 Room Air 02/05/18 02:00 96 18 109/64 98 Room Air 02/05/18 01:45 95 18 123/75 95 Room Air 02/05/18 01:01 88 94/67 95 Room Air 02/05/18 00:45 89 18 93/46 94 Room Air 02/04/18 23:51 89 02/04/18 23:36 36.3 96 20 71/44 97 Room Air General Appearance: WD/WN, no apparent distress Eyes: normal inspection, PERRL ENT: normal ENT inspection, hearing grossly normal, TMs normal Neck: supple, no adenopathy, thyroid normal Respiratory/Chest: chest non-tender, lungs clear, normal breath sounds Cardiovascular: regular rate, rhythm, no edema, no gallop Abdomen: normal bowel sounds, non tender, soft Extremities: normal range of motion, non-tender, normal inspection 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 Laboratory Results Last 24 Hours Test 02/04/18 23:47 02/04/18 23:56 02/05/18 00:00 02/05/18 06:47 Gastric Fluid pH 5-7 Gastric Fluid Occult Blood POS White Blood Count 16.00 K/uL Red Blood Count 2.90 M/uL Hemoglobin 8.6 g/dL 6.5 g/dL Hematocrit 25.9 % 19.6 % Mean Corpuscular Volume 89.3 fL Mean Corpuscular Hemoglobin 29.7 pg Mean Corpuscular Hemoglobin Concent 33.2 g/dl Platelet Count 251 K/uL Mean Platelet Volume 10.2 fL Neutrophils (%) (Auto) 73.9 % Lymphocytes (%) (Auto) 20.5 % Monocytes (%) (Auto) 4.3 % Eosinophils (%) (Auto) 0.3 % Basophils (%) (Auto) 0.1 % Neutrophils # (Auto) 11.83 K/uL Lymphocytes # (Auto) 3.28 K/uL Monocytes # (Auto) 0.68 K/uL Eosinophils # (Auto) 0.05 K/uL Basophils # (Auto) 0.01 K/uL RDW Standard Deviation 51.5 fL RDW Coefficient of Variation 16.0 % Immature Granulocyte % (Auto) 0.9 % Immature Granulocyte # (Auto) 0.15 K/uL Red Blood Cell Morphology Unremarkable Prothrombin Time 11.4 SECONDS Prothromb Time International Ratio 1.1 Sodium Level 142 mmol/L Potassium Level 4.3 mmol/L Chloride Level 111 mmol/L Carbon Dioxide Level 21 mmol/L Anion Gap 10.0 mmol/L 16.0 mmol/L Blood Urea Nitrogen 70 mg/dl Creatinine 0.99 mg/dl Est Creatinine Clear Calc Drug Dose 50.7 ml/min Estimated GFR () 83.6 Estimated GFR (Non- 72.1 BUN/Creatinine Ratio 70.9 Random Glucose 121 mg/dl Calcium Level 8.1 mg/dl Magnesium Level 2.4 mg/dl Total Bilirubin 0.4 mg/dl Aspartate Amino Transf (AST/SGOT) 19 U/L Alanine Aminotransferase (ALT/SGPT) 29 U/L Alkaline Phosphatase 37 U/L Troponin I 0.080 ng/ml 0.304 ng/ml Pro-B-Type Natriuretic Peptide 2467 pg/ml Total Protein 5.1 gm/dl Albumin 2.4 gm/dl Globulin 2.7 gm/dl Albumin/Globulin Ratio 0.9 Lipase 263 U/L Bedside Hemoglobin 8.2 g/dl Bedside Hematocrit 24 % Bedside Sodium 140 mEq/L Bedside Potassium 4.2 mEq/L Bedside Chloride 108 mEq/L Bedside Total CO2 21 mEq/l Bedside Blood Urea Nitrogen 64 mg/dl Bedside Creatinine 0.9 mg/dl Bedside Glucose (other) 122 mg/dl Bedside Ionized Calcium (Rafita) 1.18 mmol/l Impression Patient is a 77 year old male with reported history of mild pudz per last egd in 12/10 at [facility]. Now with recent steroid use. Admitted with hematemesis/melena. Stable hemodynamically other than slightly low blood pressure. He has no active bleeding at this time. Slight downtrend in hgb this am - unclear if he is still having dark stool, no hematemesis at this time. Concern for pudz given prior knonw pudz and recent steroid use. Denied etoh, not known to be cirrhotic. Plan Continue with PPI infusion, transfusion as needed. Would assess and address his rising troponin prior to an egd. Limit blood thinner. Likely will plan for an egd on Wednesday in our endoscopy unit given current assessment today, if clinical situation changes and unstable hemodynamically, egd more urgently if or space is available. Trend daily hgb, monitor stool. Patient was okay with this plan per discussion with him at bedside this am.
[2018-02-05] MEDS ORDERED: PIPERACILL/TAZOBAC IV 3.375 GM in D5W 100ML IV SCH (12:00)
--- NOTE | 2018-02-05 13:22 | Anesthesiology Progress Note ---
Anesthesia Progress Note Date of Service Feb 05, 2018. Progress Notes Patient with chronic lung disease and peptic ulcer disease admitted for severe anemia and GI blood. Receiving his second unit now, blood pressures in the 90's , troponins have bumped up, likely demand ischemia? Would like to see his oxygen carrying capacity improved prior to attempting endoscopy, as long as he is stable hemodynamically. Would consider getting cardiology involved, especially if there is continued troponin elevation or other symptoms. There is nothing in our records to indicate he has had past cardiac issues or evaluations.
[2018-02-05 15:58] LABS: HEMATOCRIT 26.2 % (42-52); HEMOGLOBIN 8.8 g/dL (14.0-18.0)
--- NOTE | 2018-02-05 17:23 | DIAGNOSTIC IMAGING REPORT ---
R PELVIS/UNILATERAL HIP 2-3VIEWS CLINICAL HISTORY: 77 years-old Male presenting with right hip pain . TECHNIQUE: Single frontal view of the pelvis and frontal and frog-leg lateral views of the right hip were obtained. COMPARISON: CT obtained earlier today. FINDINGS: Postsurgical changes of total left hip arthroplasty. Osteopenia may be present. Degenerative changes of the lower lumbar spine. Sacral iliac joints, pubic symphysis, and right hip joint congruent. Bony pelvis intact. Right femoral neck intact. No advanced degenerative changes of the right hip area no malalignment. Excreted contrast noted in the urinary bladder. IMPRESSION: No acute osseous injury or advanced degenerative change of the pelvis or right hip. Electronically signed by: Marek Marina M.D. 02/05/2018 5:22 PM Dictated Date/Time: 02/05/2018 5:20 PM
[2018-02-05] MEDS ORDERED: VANCOMYCIN IV 750 MG in SODIUM CHLORIDE 0.9% 250ML 250 ML IV SCH (18:00)
--- NOTE | 2018-02-05 18:35 | ECHOCARDIOGRAM REPORT ---
*NOTICE TO RECEIVING REPUBLICAN AGENCY This information is strictly Confidential and protected under [place] law. [place] law prohibits you from making any further disclosure of this information unless further disclosure is expressly permitted by the written consent of the person to whom it pertains or is authorized by law. A general authorization for the release of medical or other information is not sufficient for this purpose. Hospital accepts no responsibility if the information is made available to any other person, INCLUDING THE PATIENT. Interpretation Summary * Name: CANDELARIA ALVARADO Study Date: 02/05/2018 02:46 PM BP: 93/56 mmHg * Patient Location: C.2T\S\S241\S\1 HR: 92 * : 1940 (M/d/yyyy) Gender: Male Height: 64 in * Age: 77 yrs Ethnicity: CA Weight: 127 lb * Ordering Physician: Abram Ace * Referring Physician: Self, Referred * Performed By: Alie Pierson [facility] * * Reason For Study: ELEVATED TROPONIN * BSA: 1.6 m2 * -- Conclusions -- * 1. Mildly dilated left ventricle with severely reduced systolic function. Estimated EF 25-30%. Akinesis of the mid to distal inferior, mid inferolateral, mid to distal anterior, distal anterolateral, and apical segments. Otherwise, global hypokinesis with relative sparing of the basal lateral wall. Mild concentric left ventricular hypertrophy. Type 1 diastolic dysfunction. Septal flattening during diastole may suggest right ventricular volume overload. * 2. The right ventricle is mildly dilated. The right ventricular systolic function is normal as assessed by tricuspid annular plane systolic excursion (TAPSE) (normal >1.5 cm). * 3. The left atrium is moderately dilated. * 4. Mild aortic regurgitation. * 5. Mild to moderate anteriorly directed mitral regurgitation. * 6. Moderate pulmonary hypertension suggested with estimated RVSP of 50 mmHg. * 7. No prior study available for comparison. Procedure Details * A complete two-dimensional transthoracic echocardiogram was performed (2D, M-mode, Doppler and color flow Doppler). Left Ventricle * Mildly dilated left ventricle with severely reduced systolic function. Estimated EF 25-30%. Akinesis of the mid to distal inferior, mid inferolateral, mid to distal anterior, distal anterolateral, and apical segments. Otherwise, global hypokinesis with relative sparing of the basal lateral wall. Mild concentric left ventricular hypertrophy. Type 1 diastolic dysfunction. Septal flattening during diastole may suggest right ventricular volume overload. Right Ventricle * The right ventricle is mildly dilated. * The right ventricular systolic function is normal as assessed by tricuspid annular plane systolic excursion (TAPSE) (normal >1.5 cm). Atria * The left atrium is moderately dilated. * Right atrial size is normal. * There is no evidence of atrial septal defect, but resolution does not allow assessment for a patent foramen ovale. Mitral Valve * There is no mitral valve stenosis. * Mild to moderate eccentric mitral regurgitation. Tricuspid Valve * The tricuspid valve is not well visualized, but is grossly normal. * There is no tricuspid stenosis. * There is mild tricuspid regurgitation. Aortic Valve * The aortic valve is trileaflet. * Aortic valve sclerosis mild, without significant aortic valvular stenosis. * No hemodynamically significant valvular aortic stenosis. * Mild aortic regurgitation. Pulmonic Valve * The pulmonary valve is inadequately visualized, but the Doppler data is adequate for interpretation. * There is no pulmonic valvular stenosis. * Mild pulmonic valvular regurgitation. Great Vessels * The aortic root is normal size. * Blunted pulmonary venous flow pattern. Pericardium/Pleural * There is no pericardial effusion. Great Vessels * Normal inferior vena cava size and collapsability with sniff indicates a normal right atrial pressure of 3 mmHg MMode 2D Measurements and Calculations IVSd 1.5 cm IVSs 1.7 cm LVIDd 5.5 cm LVIDs 4.8 cm LVPWd 1.3 cm LVPWs 1.7 cm IVS/LVPW 1.1 FS 13.6 % EDV(Teich) 149.6 ml ESV(Teich) 106.6 ml EF(Teich) 28.8 % EDV(cubed) 169.6 ml ESV(cubed) 109.4 ml EF(cubed) 35.5 % % IVS thick 16.1 % % LVPW thick 33.4 % LV mass(C)d 327.0 grams LV mass(C)dI 202.7 grams/m\S\2 LV mass(C)s 360.6 grams LV mass(C)sI 223.6 grams/m\S\2 SV(Teich) 43.1 ml SI(Teich) 26.7 ml/m\S\2 SV(cubed) 60.3 ml SI(cubed) 37.4 ml/m\S\2 Ao root diam 3.4 cm Ao root area 9.2 cm\S\2 ACS 2.2 cm LA dimension 4.2 cm LA/Ao 1.2 LVOT diam 2.0 cm LVOT area 3.3 cm\S\2 LVAd ap4 45.6 cm\S\2 LVLd ap4 9.3 cm EDV(MOD-sp4) 182.4 ml EDV(sp4-el) 190.5 ml LVAs ap4 36.7 cm\S\2 LVLs ap4 8.7 cm ESV(MOD-sp4) 125.6 ml ESV(sp4-el) 131.1 ml EF(MOD-sp4) 31.1 % EF(sp4-el) 31.2 % LVAd ap2 46.9 cm\S\2 LVLd ap2 9.6 cm EDV(MOD-sp2) 187.8 ml EDV(sp2-el) 193.4 ml LVAs ap2 42.8 cm\S\2 LVLs ap2 9.1 cm ESV(MOD-sp2) 164.2 ml ESV(sp2-el) 170.4 ml EF(MOD-sp2) 12.6 % EF(sp2-el) 11.9 % LVLd %diff 2.7 % EDV(MOD-bp) 187.0 ml LVLs %diff 4.4 % ESV(MOD-bp) 145.3 ml EF(MOD-bp) 22.3 % SV(MOD-sp4) 56.7 ml SI(MOD-sp4) 35.2 ml/m\S\2 SV(MOD-sp2) 23.7 ml SI(MOD-sp2) 14.7 ml/m\S\2 SV(MOD-bp) 41.7 ml SI(MOD-bp) 25.9 ml/m\S\2 SV(sp4-el) 59.4 ml SI(sp4-el) 36.8 ml/m\S\2 SV(sp2-el) 23.0 ml SI(sp2-el) 14.3 ml/m\S\2 Doppler Measurements and Calculations MV E max darrian 62.0 cm/sec MV A max darrian 119.7 cm/sec MV E/A 0.52 Ao V2 max 148.9 cm/sec Ao max PG 8.9 mmHg Ao max PG (full) 4.5 mmHg INDIRA(V,A) 2.3 cm\S\2 INDIRA(V,D) 2.3 cm\S\2 AI max darrian 395.5 cm/sec AI max PG 62.6 mmHg AI dec slope 329.8 cm/sec\S\2 AI P1/2t 351.2 msec LV V1 max PG 4.4 mmHg LV V1 max 104.6 cm/sec MR max darrian 351.0 cm/sec MR max PG 49.3 mmHg PA V2 max 91.0 cm/sec PA max PG 3.3 mmHg PI max darrian 194.7 cm/sec PI max PG 15.2 mmHg PI dec slope 402.6 cm/sec\S\2 PI P1/2t 141.7 msec TR max darrian 342.0 cm/sec RVSP(TR) 49.8 mmHg RAP systole 3.0 mmHg
[2018-02-06] VITALS (21 sets, daily range): BP systolic 99–130; BP diastolic 42–88; PULSE 63–109; TEMP 36.7–37.1; O2SAT 95–99
[2018-02-06 00:30] LABS: HEMATOCRIT 24.3 % (42-52); HEMOGLOBIN 8.5 g/dL (14.0-18.0)
[2018-02-06] MEDS: ALBUT/IPRATROP 3MG/0.5MG NEB 3 ML VIAL INH SCH ×4 (01:36→19:14)
[2018-02-06] MEDS: PANTOprazole INJ 40 MG in DEXTROSE 5% 100ML IV SCH ×5 (02:11→21:10)
[2018-02-06] MEDS: BUDESONIDE 0.5 MG/2 ML VIAL (PULMICORT) INH SCH ×2 (06:58→19:14)
[2018-02-06 07:30] LABS: HEMATOCRIT 22.5 % (42-52); HEMOGLOBIN 7.7 g/dL (14.0-18.0); IG# 0.05 K/uL (0.00-0.02); LYMPH % 7.8 %; MEAN CELL VOLUME 87.2 fL (80-100); MEAN CORPUSCULAR HEMOGLOBIN 29.8 pg (25-34); MEAN CORPUSCULAR HGB CONC 34.2 g/dl (32-36); MEAN PLATELET VOLUME 9.7 fL (7.4-10.4); MONO % 6.5 %; MONO ABS # 0.75 K/uL (0.11-0.59); NEUT % 85.3 %; PLATELET COUNT 179 K/uL (130-400); RED CELL DISTRIBUTION WIDTH CV 17.1 % (11.5-14.5); RED CELL DISTRIBUTION WIDTH SD 53.1 fL (36.4-46.3)
[2018-02-06] MEDS: SODIUM CHLORIDE 0.9% 1000ML 1,000 ML IV SCH ×2 (07:41→21:10)
[2018-02-06] MEDS: FLUTICASONE/SALMETEROL 100/50 (ADVAIR) 14 PUFF/1 INHALER INH SCH ×2 (07:41→21:09)
[2018-02-06] MEDS: HYDROCORTISONE IV 100 MG in SYRINGE 0 ML IV SCH ×3 (07:41→21:10)
[2018-02-06 08:02] LABS: CALCIUM 6.9 mg/dl (8.5-10.1); CREATININE 0.85 mg/dl (0.60-1.40); POTASSIUM 3.4 mmol/L (3.5-5.1)
--- NOTE | 2018-02-06 08:53 | Gastroenterology Progress Note ---
Progress Note Date of Service: Feb 06, 2018 Subjective Pt evaluation today including: conversation w/ patient, chart review, lab review, review of studies Review of Systems Constitutional: No fever, No chills Eyes: No worsening of vision, No eye pain ENT: No hearing loss, No unusual epistaxis, No nasal symptoms Respiratory: No cough, No sputum Cardiac: No chest pain, No orthopnea Abdomen: No pain, No nausea, No vomiting Musculoskeletal: No joint pain Male : No dysuria, No urinary frequency Neuro: No memory loss, No paralysis Psych: No depression symptoms, No anhedonism Heme: No abnormal bleeding/bruising Endo: No fatigue Skin: No rash Medications Current Inpatient Medications Medications (Trade) Dose Ordered Sig/Cole Route Start Time Stop Time Status Last Admin Dose Admin Ioversol (Optiray 320) 100 ml UD PRN IV 02/05/18 00:30 02/09/18 00:29 Sodium Chloride 1,000 ml @ 75 mls/hr [id number] IV 02/05/18 05:00 03/07/18 04:59 02/06/18 07:41 75 MLS/HR Acetaminophen (Tylenol Tab) 650 mg Q4H PRN PO 02/05/18 03:15 03/07/18 03:14 Ondansetron HCl (Zofran Inj) 4 mg Q6H PRN IV 02/05/18 03:15 03/07/18 03:14 Albuterol Sulfate (Ventolin 0.083% 2.5MG/3ML Neb) 2.5 mg QID PRN INH 02/05/18 03:30 03/07/18 03:29 Salmeterol Xinafoate/ Fluticasone (Advair Diskus 100/50 Inh) 1 puff BID INH 02/05/18 09:00 03/07/18 08:59 02/06/18 07:41 1 PUFF Albuterol/ Ipratropium (Duoneb) 3 ml Q6R INH 02/05/18 09:00 03/07/18 08:59 02/06/18 06:58 3 ML Hydrocortisone Sodium Succinate 100 mg/Syringe 2 ml @ 4 mls/min TID IV 02/05/18 09:00 02/08/18 08:59 02/06/18 07:41 4 MLS/MIN Budesonide (Pulmicort Respules 0.5MG/ 2ML Neb Soln) 0.5 mg BIDR INH 02/05/18 08:00 03/07/18 07:59 02/06/18 06:58 0.5 MG Pantoprazole Sodium 40 mg/ Dextrose 100 ml @ 20 mls/hr Q5H IV 02/05/18 05:30 03/07/18 05:29 02/06/18 06:31 20 MLS/HR Objective Vital Signs Date Time Temp Pulse Resp B/P (MAP) Pulse Ox O2 Delivery O2 Flow Rate FiO2 02/06/18 08:04 36.8 93 18 112/72 (85) 97 Room Air 02/06/18 06:58 63 16 98 Room Air 02/06/18 04:00 36.7 92 16 99/58 (72) 99 Room Air 02/06/18 01:37 86 16 96 Room Air 02/06/18 00:37 36.9 92 17 99/42 (61) 96 Room Air 02/05/18 20:00 Room Air 02/05/18 19:24 86 16 97 Room Air 02/05/18 19:09 37.0 93 20 96/59 (71) 97 Room Air 02/05/18 14:34 37.3 93 18 99/63 100 02/05/18 14:24 91 16 96 Room Air 02/05/18 14:05 93 18 99/63 97 02/05/18 13:35 37.1 88 18 94/58 96 02/05/18 13:00 37.2 88 16 106/63 96 02/05/18 12:45 86 16 93/57 98 02/05/18 12:30 37.3 90 18 93/61 98 02/05/18 12:18 37.1 88 16 93/56 97 02/05/18 12:00 37.3 88 18 96/58 98 02/05/18 11:30 37.6 90 16 96/57 98 02/05/18 10:45 88 16 102/62 97 02/05/18 10:30 37.2 89 16 105/60 98 02/05/18 10:15 90 16 91/49 93 02/05/18 10:00 Room Air 02/05/18 10:00 37.2 93 16 96/59 94 Physical Exam General Appearance: WD/WN, no apparent distress Eyes: normal inspection Neck: supple, no adenopathy Respiratory/Chest: chest non-tender, lungs clear, normal breath sounds Cardiovascular: regular rate, rhythm, no edema, no gallop Abdomen: normal bowel sounds, non tender, soft Extremities: normal range of motion Neurologic/Psych: postpartum rn II-XII nml as tested Skin: normal color, no jaundice Laboratory Results Last 24 Hours Test 02/05/18 13:10 02/05/18 15:39 02/05/18 20:21 02/06/18 00:00 Troponin I 0.694 ng/ml 1.140 ng/ml Hemoglobin 8.8 g/dL 8.5 g/dL 8.5 g/dL Hematocrit 26.2 % 24.3 % Test 02/06/18 06:47 02/06/18 07:26 White Blood Count 11.50 K/uL Red Blood Count 2.58 M/uL Hemoglobin 7.7 g/dL Hematocrit 22.5 % Mean Corpuscular Volume 87.2 fL Mean Corpuscular Hemoglobin 29.8 pg Mean Corpuscular Hemoglobin Concent 34.2 g/dl Platelet Count 179 K/uL Mean Platelet Volume 9.7 fL Neutrophils (%) (Auto) 85.3 % Lymphocytes (%) (Auto) 7.8 % Monocytes (%) (Auto) 6.5 % Eosinophils (%) (Auto) 0.0 % Basophils (%) (Auto) 0.0 % Neutrophils # (Auto) 9.80 K/uL Lymphocytes # (Auto) 0.90 K/uL Monocytes # (Auto) 0.75 K/uL Eosinophils # (Auto) 0.00 K/uL Basophils # (Auto) 0.00 K/uL RDW Standard Deviation 53.1 fL RDW Coefficient of Variation 17.1 % Immature Granulocyte % (Auto) 0.4 % Immature Granulocyte # (Auto) 0.05 K/uL Polychromasia 1+ Sodium Level 143 mmol/L Potassium Level 3.4 mmol/L Chloride Level 114 mmol/L Carbon Dioxide Level 21 mmol/L Anion Gap 8.0 mmol/L Blood Urea Nitrogen 29 mg/dl Creatinine 0.85 mg/dl Est Creatinine Clear Calc Drug Dose 57.8 ml/min Estimated GFR () 96.1 Estimated GFR (Non- 82.9 BUN/Creatinine Ratio 33.6 Random Glucose 117 mg/dl Calcium Level 6.9 mg/dl Troponin I 1.150 ng/ml Assessment and Plan 77 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 recent increase in steroid use. He has had one dark bm overnite, slightly downtrend in hgb after transfusion but improving BUN on IV PPI. He has been seen by anesthesia as well and given the rising troponin- need formal cardiology assessment. Once that is done, may consider an EGD early this week if he is stable enough from a cardiology standpoint. Would continue IV PPI infusion for now, prn blood transfusions. Patient was fine with this plan this morning. Denies any abdominal pain this morning.
[2018-02-06] MEDS ORDERED: METOPROLOL TARTRATE 25 MG TAB PO SCH (10:00)
--- NOTE | 2018-02-06 11:30 | Cardiology Consultation ---
Cardiology Consultation Date of Consultation: Feb 06, 2018. Requesting Physician: Dr. Ace Attending Physician: Dr. Ace Reason for Consultation: NSTEMI, Cardiomyopathy Pt evaluation today including: conversation w/ patient, physical exam, chart review, lab review, review of studies, review of inpatient medication list, conversation w/ attending History of Present Illness Mr. 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 He states that he has been hospitalized 3 separate occasions for GI bleeding, including present hospitalization. He has received blood transfusion during all 3 hospitalizations. Approximately 2 days ago he noted melena described as black tar-like stool. He had several bouts. Once he came to the hospital, he had developed nausea and had an episode of hematemesis. He continues to have melena with his last episode this morning. He felt lightheaded on presentation. He has chronic dyspnea with exertion. He noticed some lower abdominal pain last night and early this morning had some left lateral chest burning while laying in bed that lasted approximately 30 minutes before spontaneously resolving. He received 2 units of packed red blood cells during this hospitalization thus far. His hemoglobin initially improved but has since continued to fall. He has been evaluated by GI, and EGD has been recommended. He has been evaluated by anesthesiology in anticipation of EGD. Troponin levels were checked and more elevated. Echocardiogram demonstrated reduced LV systolic function. He typically does not experience chest pain. He has chronic but stable dyspnea with exertion. He denies shortness of breath at rest, orthopnea, PND, edema, leg pain, fevers, chills, syncope, near-syncope, or palpitations. He admits that he took NSAIDs or aspirin for hip pain recently but cannot recall when. He states that he can tolerate aspirin as long as it is in smaller doses and intermittent but larger doses cause hives. Review of systems: As above and review of systems otherwise negative/ unremarkable. Past Medical/Surgical History 1. 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 GI bleed diagnosed with peptic ulcer disease in the past requiring blood transfusion during 3 separate hospitalizations over the past several years. 3. Chronic prednisone use Family History Mother with myocardial infarction at the age of 84. Social History Denies smoking, alcohol, drug abuse. He is and lives with his , daughter. He has 6 children altogether with 9 grandchildren and 5 great- grandchildren. 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 He resided [place]. There was no family at the bedside at the time of this visit. Review of Systems Respiratory: No cough, No sputum Cardiac: No chest pain, No orthopnea Allergies Coded Allergies: Aspirin (Verified Allergy, Intermediate, HIVES, 02/05/18) Codeine (Verified Allergy, Unknown, "violently ill"., 02/05/18) Medications Reported Home Medications Medications Dose Route/Sig Max Daily Dose Days Date Category Dose Instructions Proventil 0.083% 2.5MG/3ML (Albuterol Sulf) 2.5 Mg/3 Ml Nebu 2.5 Mg INH QID PRN 02/05/18 Reported Advair Diskus 100/50 60 Dose (Fluticasone Prop/Salmeterol) Unknown Strength Aerp 1 Puff INH BID 02/05/18 Reported Ventolin Hfa (Albuterol) 200 Puffs/79633 Mcg Aers 2-4 Puffs INH Q6H PRN 02/05/18 Reported Prednisone 10 Mg Tab 10 Mg PO UD PRN 02/05/18 Reported may take additional prednisone up to 40mg per day for 3 days then decrease to 30mg for 3 days,20mg for 3 days then 10mg for 3 days Prednisone 10 Mg Tab 10 Mg PO DAILY 06/27/09 Reported Current Inpatient Medications Medications (Trade) Dose Ordered Sig/Cole Route Start Time Stop Time Status Last Admin Dose Admin Ioversol (Optiray 320) 100 ml UD PRN IV 02/05/18 00:30 02/09/18 00:29 Sodium Chloride 1,000 ml @ 75 mls/hr [id number] IV 02/05/18 05:00 03/07/18 04:59 02/06/18 07:41 75 MLS/HR Acetaminophen (Tylenol Tab) 650 mg Q4H PRN PO 02/05/18 03:15 03/07/18 03:14 Ondansetron HCl (Zofran Inj) 4 mg Q6H PRN IV 02/05/18 03:15 03/07/18 03:14 Albuterol Sulfate (Ventolin 0.083% 2.5MG/3ML Neb) 2.5 mg QID PRN INH 02/05/18 03:30 03/07/18 03:29 Salmeterol Xinafoate/ Fluticasone (Advair Diskus 100/50 Inh) 1 puff BID INH 02/05/18 09:00 03/07/18 08:59 02/06/18 07:41 1 PUFF Albuterol/ Ipratropium (Duoneb) 3 ml Q6R INH 02/05/18 09:00 03/07/18 08:59 02/06/18 06:58 3 ML Hydrocortisone Sodium Succinate 100 mg/Syringe 2 ml @ 4 mls/min TID IV 02/05/18 09:00 02/08/18 08:59 02/06/18 07:41 4 MLS/MIN Budesonide (Pulmicort Respules 0.5MG/ 2ML Neb Soln) 0.5 mg BIDR INH 02/05/18 08:00 03/07/18 07:59 02/06/18 06:58 0.5 MG Pantoprazole Sodium 40 mg/ Dextrose 100 ml @ 20 mls/hr Q5H IV 02/05/18 05:30 03/07/18 05:29 02/06/18 06:31 20 MLS/HR Metoprolol Tartrate (Lopressor Tab) 12.5 mg QAM PO 02/06/18 10:00 03/08/18 09:59 Physical Exam Vital Signs Past 12 Hours Date Time Temp Pulse Resp B/P (MAP) Pulse Ox O2 Delivery O2 Flow Rate FiO2 02/06/18 08:04 36.8 93 18 112/72 (85) 97 Room Air 02/06/18 06:58 63 16 98 Room Air 02/06/18 04:00 36.7 92 16 99/58 (72) 99 Room Air 02/06/18 01:37 86 16 96 Room Air 02/06/18 00:37 36.9 92 17 99/42 (61) 96 Room Air Gen.: No acute distress. Alert and oriented. HEENT: Anicteric sclera. Neck: No JVD. No bruits. Normal carotid upstrokes bilaterally. Cardiac: PMI was nondisplaced. No ventricular heave. Regular. Normal S1-S2. No murmurs, rubs, or gallops. Pulmonary: Decreased breath sounds throughout with expiratory wheezing bilaterally. Abdomen: Soft, nontender, nondistended, with normoactive bowel sounds. No bruits noted. Extremities: 2+ radial pulses bilaterally. 2+ posterior tibialis pulses bilaterally. No edema or cyanosis. No palpable cords. Psychiatric: Affect appears appropriate. Data Laboratory Results: Last 24 Hours Test 02/05/18 13:10 02/05/18 15:39 02/05/18 20:21 02/06/18 00:00 Troponin I 0.694 ng/ml 1.140 ng/ml Hemoglobin 8.8 g/dL 8.5 g/dL 8.5 g/dL Hematocrit 26.2 % 24.3 % Test 02/06/18 06:47 02/06/18 07:26 White Blood Count 11.50 K/uL Red Blood Count 2.58 M/uL Hemoglobin 7.7 g/dL Hematocrit 22.5 % Mean Corpuscular Volume 87.2 fL Mean Corpuscular Hemoglobin 29.8 pg Mean Corpuscular Hemoglobin Concent 34.2 g/dl Platelet Count 179 K/uL Mean Platelet Volume 9.7 fL Neutrophils (%) (Auto) 85.3 % Lymphocytes (%) (Auto) 7.8 % Monocytes (%) (Auto) 6.5 % Eosinophils (%) (Auto) 0.0 % Basophils (%) (Auto) 0.0 % Neutrophils # (Auto) 9.80 K/uL Lymphocytes # (Auto) 0.90 K/uL Monocytes # (Auto) 0.75 K/uL Eosinophils # (Auto) 0.00 K/uL Basophils # (Auto) 0.00 K/uL RDW Standard Deviation 53.1 fL RDW Coefficient of Variation 17.1 % Immature Granulocyte % (Auto) 0.4 % Immature Granulocyte # (Auto) 0.05 K/uL Polychromasia 1+ Sodium Level 143 mmol/L Potassium Level 3.4 mmol/L Chloride Level 114 mmol/L Carbon Dioxide Level 21 mmol/L Anion Gap 8.0 mmol/L Blood Urea Nitrogen 29 mg/dl Creatinine 0.85 mg/dl Est Creatinine Clear Calc Drug Dose 57.8 ml/min Estimated GFR () 96.1 Estimated GFR (Non- 82.9 BUN/Creatinine Ratio 33.6 Random Glucose 117 mg/dl Calcium Level 6.9 mg/dl Troponin I 1.150 ng/ml Telemetry personally reviewed: Sinus rhythm with sinus tachycardia ECGs personally reviewed: ECG 02/05/2018 at 12:02 a.m.: Sinus rhythm 92 bpm. PACs. RBBB. LVH. ECG 02/05/2018 at 10:01 p.m.: Sinus rhythm at 94 bpm. RBBB. Possible septal infarct. ECG 02/06/2018 at 9:51 a.m.: Sinus tachycardia at 110 bpm. RBBB. Anteroseptal infarct. Echocardiogram 02/05/2018: 1. Mildly dilated left ventricle with severely reduced systolic function. Estimated EF 25-30%. Akinesis of the mid to distal inferior, mid inferolateral , mid to distal anterior, distal anterolateral, and apical segments. Otherwise , global hypokinesis with relative sparing of the basal lateral wall. Mild concentric left ventricular hypertrophy. Type 1 diastolic dysfunction. Septal flattening during diastole may suggest right ventricular volume overload. 2. The right ventricle is mildly dilated. The right ventricular systolic function is normal as assessed by tricuspid annular plane systolic excursion ( TAPSE) (normal >1.5 cm). 3. The left atrium is moderately dilated. 4. Mild aortic regurgitation. 5. Mild to moderate anteriorly directed mitral regurgitation. 6. Moderate pulmonary hypertension suggested with estimated RVSP of 50 mmHg. 7. No prior study available for comparison. CT scan of the chest 02/05/2018: Minimal coronary artery and aortic valve calcification per Radiology. 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 Emphysema. Thyroid nodule. Assessment & Plan ASSESSMENT/PLAN: 1. NSTEMI: He did not present with acute coronary syndrome but rather profound anemia due to active GI bleeding. Elevated enzymes are likely secondary to the fact that he has had demand ischemia. Cannot rule out baseline underlying ischemic heart disease however minimal calcifications noted on CT scan. Aspirin is contraindicated while bleeding and he reports hives when taking on a regular basis. Cardiac catheterization is not recommended given active GI bleed. He did have atypical chest pain however once again in the setting of profound anemia. Supportive care recommended. If no contraindications, could initiate statin therapy. 2. Cardiomyopathy: May be secondary to profound anemia/acute illness with poor perfusion due to acute GI bleed anemia. He reports having an echocardiogram done recently in clear filled. Obtain records. Consider metoprolol succinate and MOLLY-inhibitor however with active bleeding and mild hypotension, there is concern for worsening hypotension with poor overall reserve the. Would initiate these medications when his bleeding resolves and hemoglobin stabilizes. He does not appear to be hypervolemic. 3. Sinus tachycardia: Likely secondary to worsening anemia. His hemoglobin continues to fall despite blood transfusion. Consider further blood transfusion. His heart rate will likely improve. Six would hold off on beta- jatin with mild hypotension in the setting of active GI bleeding. 4. Pulmonary hypertension: Likely secondary to his documented pulmonary issues. He does not appear to be hypervolemic. 5. Mitral regurgitation: Non severe. This can be followed over time. 6. Disposition: Cardiology will continue to follow. Plan of care was discussed with the primary hospitalist service, including Dr. Ace. Highly complex medical issues. Thank you for allowing me to participate in the care of your patient. Please call for any other questions or concerns. Sincerely, Christian Dumont M.D.
[2018-02-06 12:44] LABS: HEMATOCRIT 25.4 % (42-52); HEMOGLOBIN 8.5 g/dL (14.0-18.0)
--- NOTE | 2018-02-06 13:29 | Family Medicine Progress Note ---
Progress Note Date of Service Feb 06, 2018. Subjective Pt evaluation today including: conversation w/ patient Voiding: no voiding problems Mild chest discomfort, no pain Continues to have melena Constitutional: No fever, No chills Eyes: No worsening of vision Respiratory: + shortness of breath, + dyspnea on exertion, No cough, No sputum, No wheezing Cardiovascular: No chest pain Abdomen: No pain, No nausea Medications Medications (Trade) Dose Ordered Sig/Cole Route Start Time Stop Time Status Last Admin Dose Admin Metoprolol Tartrate (Lopressor Tab) 12.5 mg QAM PO 02/06/18 10:00 03/08/18 09:59 02/06/18 11:35 12.5 MG Objective Vital Signs Date Time Temp Pulse Resp B/P (MAP) Pulse Ox O2 Delivery O2 Flow Rate FiO2 02/06/18 12:23 36.7 106 18 126/88 (101) 98 Room Air 02/06/18 11:18 109 130/80 (97) 02/06/18 08:04 36.8 93 18 112/72 (85) 97 Room Air 02/06/18 06:58 63 16 98 Room Air 02/06/18 04:00 36.7 92 16 99/58 (72) 99 Room Air 02/06/18 01:37 86 16 96 Room Air 02/06/18 00:37 36.9 92 17 99/42 (61) 96 Room Air 02/05/18 20:00 Room Air 02/05/18 19:24 86 16 97 Room Air 02/05/18 19:09 37.0 93 20 96/59 (71) 97 Room Air 02/05/18 14:34 37.3 93 18 99/63 100 02/05/18 14:24 91 16 96 Room Air 02/05/18 14:05 93 18 99/63 97 02/05/18 13:35 37.1 88 18 94/58 96 02/05/18 13:00 37.2 88 16 106/63 96 02/05/18 12:45 86 16 93/57 98 Physical Exam General Appearance: no apparent distress Eyes: PERRL, EOMI Neck: supple, no JVD Respiratory/Chest: lungs clear, normal breath sounds, no respiratory distress, no accessory muscle use Cardiovascular: regular rate, rhythm, no edema, no murmur Abdomen: normal bowel sounds, non tender, soft Extremities: non-tender, normal inspection, no pedal edema Neurologic/Psychiatric: alert, normal mood/affect Laboratory Results Last 24 Hours Test 02/05/18 13:10 02/05/18 15:39 02/05/18 20:21 02/06/18 00:00 Troponin I 0.694 ng/ml 1.140 ng/ml Hemoglobin 8.8 g/dL 8.5 g/dL 8.5 g/dL Hematocrit 26.2 % 24.3 % Test 02/06/18 06:47 02/06/18 07:26 02/06/18 12:19 White Blood Count 11.50 K/uL Red Blood Count 2.58 M/uL Hemoglobin 7.7 g/dL 8.5 g/dL Hematocrit 22.5 % 25.4 % Mean Corpuscular Volume 87.2 fL Mean Corpuscular Hemoglobin 29.8 pg Mean Corpuscular Hemoglobin Concent 34.2 g/dl Platelet Count 179 K/uL Mean Platelet Volume 9.7 fL Neutrophils (%) (Auto) 85.3 % Lymphocytes (%) (Auto) 7.8 % Monocytes (%) (Auto) 6.5 % Eosinophils (%) (Auto) 0.0 % Basophils (%) (Auto) 0.0 % Neutrophils # (Auto) 9.80 K/uL Lymphocytes # (Auto) 0.90 K/uL Monocytes # (Auto) 0.75 K/uL Eosinophils # (Auto) 0.00 K/uL Basophils # (Auto) 0.00 K/uL RDW Standard Deviation 53.1 fL RDW Coefficient of Variation 17.1 % Immature Granulocyte % (Auto) 0.4 % Immature Granulocyte # (Auto) 0.05 K/uL Polychromasia 1+ Sodium Level 143 mmol/L Potassium Level 3.4 mmol/L Chloride Level 114 mmol/L Carbon Dioxide Level 21 mmol/L Anion Gap 8.0 mmol/L Blood Urea Nitrogen 29 mg/dl Creatinine 0.85 mg/dl Est Creatinine Clear Calc Drug Dose 57.8 ml/min Estimated GFR () 96.1 Estimated GFR (Non- 82.9 BUN/Creatinine Ratio 33.6 Random Glucose 117 mg/dl Calcium Level 6.9 mg/dl Troponin I 1.150 ng/ml Assessment and Plan 77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 Upper GI Bleed Recently scoped in [facility] in November and found non bleeding resolving peptic ulcer. Subsequently increased his steroids for his lung disease and doesn't take a PPI. Has received 2 units thus far for hgb of 6.5. Hgb did drop slightly after the transfusion to 7.7 this morning. another 1 unit in progress currently. - actively bleeding IV PPI Drip, NPO + IVF Appreciate GI Recs (Yash last saw pt in 2008 and are reconsulted).- possible egd early this week. H&H Q6H. NSTEMI Likely 2/2 to demand from anemia, rising troponin at 1.14 currently Echo with Likely new Cardiomyopathy (per patient, he had an echo at [place] in Sep that did not show abnormalities, records requested) Possibly has been having Silent SD's Recent SOB could be cardiac>pulmonary Repeat EKG - st depressions noted Cardiology Consult appreciated- Med management for now (though aspirin is contraindicated and BB/ACEI may compromise his hemodynamics)- Low dose BB was started. 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 No Oxygen requirement here. X-ray results show numerous chronic fibrotic lung changes - Chest CT report pending Duonebs Q6H Scheduled. + Albuterol PRN, Pulmicort BID. consider addition of atrovent at discharge Takes prednisone 10 mg daily at home - has missed 3 days worth Patient was placed on stress doses of IV hydrocortisone- appropriate for 24-48 hours Not convinced that the patient has pneumonia (Chest CT report does not show any consolidation though does have significant fibrosis; dc Abx ) Dispo: Remain on TELE DVT Proph: SCDs Diet: NPO + IVF , FULL CODE Resident Physician Supervision Note: I interviewed and examined the patient. Discussed with Dr. Palomo and agree with findings and plan as documented in the note. Any exceptions or clarifications are listed here: None Documented By: Abram Ace feeling ok a little left lower chest pain and on again/off again sob but nothing severe vitals noted nad breathing unlabored no pallor or icterus no epigastric ttp no guarding no rebound pain not reproducible gi bleeding with acute blood loss anemia - presumed UGI source - requiring transfusions, protonix gtt. follow closely, EGD once possible elevated troponin / echo c/w ischemic cardiomyopathy- acutely this appears to be demand ischemia from blood loss/anemia. as far as the actual cardiomyopathy , troponin of 1.x certainly not high enough to fit with all that is found on echo --> either he has CAD and with anemia myocardium is stunned and will recover with transfusions and time, or some of his recent lung disease exacerbations were actually atypical angina and he had somewhat silent SD's at home. get echo from [place], follow clinically, follow EKGs, follow cardiac enzymes. add beta jatin and follow closely otherwise as above
[2018-02-06 18:25] LABS: HEMATOCRIT 24.5 % (42-52); HEMOGLOBIN 8.5 g/dL (14.0-18.0)
[2018-02-06 23:48] LABS: HEMATOCRIT 23.9 % (42-52); HEMOGLOBIN 8.2 g/dL (14.0-18.0)
[2018-02-07] VITALS (11 sets, daily range): BP systolic 105–133; BP diastolic 64–75; PULSE 80–94; TEMP 36.3–36.8; O2SAT 94–99
[2018-02-07] MEDS ORDERED: VANCOMYCIN TROUGH ONE (01:30)
[2018-02-07] MEDS: ALBUT/IPRATROP 3MG/0.5MG NEB 3 ML VIAL INH SCH ×4 (01:46→19:31)
[2018-02-07] MEDS: PANTOprazole INJ 40 MG in DEXTROSE 5% 100ML IV SCH ×4 (02:02→20:44)
[2018-02-07 06:59] LABS: HEMATOCRIT 23.3 % (42-52); HEMOGLOBIN 7.8 g/dL (14.0-18.0)
[2018-02-07] MEDS: BUDESONIDE 0.5 MG/2 ML VIAL (PULMICORT) INH SCH ×2 (07:00→19:31)
--- NOTE | 2018-02-07 07:09 | Family Medicine Progress Note ---
Progress Note Date of Service Feb 07, 2018. Subjective Conversant, pleasant, reports no concerns except having to miss great grandchild 's birthday democrat. 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 ROS See HPI for pertinent positives and negatives. Otherwise denies new headache, visual change, chest pain, dyspnea, orthopnea, abdominal pain, or numbness or tingling. Medications Current Inpatient Medications Medications (Trade) Dose Ordered Sig/Cole Route Start Time Stop Time Status Last Admin Dose Admin Ioversol (Optiray 320) 100 ml UD PRN IV 02/05/18 00:30 02/09/18 00:29 Acetaminophen (Tylenol Tab) 650 mg Q4H PRN PO 02/05/18 03:15 03/07/18 03:14 Ondansetron HCl (Zofran Inj) 4 mg Q6H PRN IV 02/05/18 03:15 03/07/18 03:14 Albuterol Sulfate (Ventolin 0.083% 2.5MG/3ML Neb) 2.5 mg QID PRN INH 02/05/18 03:30 03/07/18 03:29 Salmeterol Xinafoate/ Fluticasone (Advair Diskus 100/50 Inh) 1 puff BID INH 02/05/18 09:00 03/07/18 08:59 02/07/18 07:51 1 PUFF Albuterol/ Ipratropium (Duoneb) 3 ml Q6R INH 02/05/18 09:00 03/07/18 08:59 02/07/18 19:31 3 ML Hydrocortisone Sodium Succinate 100 mg/Syringe 2 ml @ 4 mls/min TID IV 02/05/18 09:00 02/08/18 08:59 02/07/18 15:03 4 MLS/MIN Budesonide (Pulmicort Respules 0.5MG/ 2ML Neb Soln) 0.5 mg BIDR INH 02/05/18 08:00 03/07/18 07:59 02/07/18 19:31 0.5 MG Pantoprazole Sodium 40 mg/ Dextrose 100 ml @ 20 mls/hr Q5H IV 02/05/18 05:30 03/07/18 05:29 02/07/18 20:44 20 MLS/HR Sodium Chloride 500 ml @ 15 mls/hr Q24H ONCE IV 02/07/18 11:30 02/08/18 11:29 Objective Vital Signs Date Time Temp Pulse Resp B/P (MAP) Pulse Ox O2 Delivery O2 Flow Rate FiO2 02/07/18 19:32 80 18 95 Room Air 02/07/18 19:04 36.7 92 18 123/71 (88) 95 Room Air 02/07/18 15:32 36.6 90 18 110/68 (82) 97 Room Air 02/07/18 14:09 84 16 94 Room Air 02/07/18 13:31 36.6 84 18 119/75 (90) 94 Room Air 02/07/18 12:53 89 20 118/74 (89) 97 Room Air 02/07/18 12:38 88 20 114/77 (89) 97 Room Air 02/07/18 12:28 91 20 115/74 (88) 97 Room Air 02/07/18 12:13 92 20 116/72 (87) 95 Room Air 02/07/18 11:49 36.8 91 19 133/69 (90) 97 Room Air 02/07/18 11:19 36.6 98 20 139/95 (110) 97 Room Air 02/07/18 08:10 36.6 94 18 105/64 (78) 94 Room Air 02/07/18 08:00 Room Air 02/07/18 07:00 92 16 98 Room Air 02/07/18 03:51 36.3 91 18 119/66 (83) 99 Room Air 02/07/18 01:47 86 16 95 Room Air 02/07/18 00:02 Room Air Physical Exam Notes: GENERAL: Awake, alert, tired appearing, in no distress. Mild pallor. HENT: Normocephalic, atraumatic. EYES: Normal conjunctiva. Sclera non-icteric. NECK: Supple. Full range of motion. no JVD RESPIRATORY: Clear to auscultation. CARDIAC: Regular rate, normal rhythm. Extremities warm and well perfused. Pulses equal. ABDOMEN: Soft, non-distended. No tenderness to palpation. No rebound or guarding. No masses. LOWER EXTREMITIES: Calves are equal size bilaterally and non-tender. No edema. No discoloration. NEURO: No motor deficits noted. SKIN: No rash or jaundice noted. 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 - Per GI: EGD 16July - large clot seen at duodenal ulcer, injected. Recommend PPI gtt x 72h, advance to clears tomorrow if no further sx's. - H&H Q6H. 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 No Oxygen requirement here. - X-ray results show numerous chronic fibrotic lung changes - Chest CT report shows pneumoconiosis and emphysema. - Duonebs Q6H Scheduled. + Albuterol PRN, Pulmicort BID. consider addition of atrovent at discharge - Takes prednisone 10 mg daily at home - has missed 3 days worth - placed on stress doses of IV hydrocortisone - appropriate for 24-48 hours NSTEMI - Likely 2/2 to demand from anemia - Echo with Likely new Cardiomyopathy (per patient, he had an echo at [place] in Sep that did not show abnormalities, records requested) - Possibly has been having Silent NC's - Recent SOB could be cardiac>pulmonary - Repeat EKG - st depressions noted - Cardiology Consult appreciated- Med management for now (though aspirin is contraindicated and BB/ACEI may compromise his hemodynamics)- Low dose BB was started. Dispo: Remain on TELE DVT Proph: SCDs. Chemical ppx contraindicated. Diet: NPO + IVF , FULL CODE Continued [facility] stay due to: multiple IV medications needed Resident Tracking Resident Involvement: Resident Care Provided Care Provided: Adult Hospital Medicine Assessment/Plan Resident Physician Supervision Note: I was present with Dr. Pérez during the history and exam. I discussed the case with the resident and agree with the findings and plan as documented in the note. Any exceptions or clarifications are listed here: Pt seen and examined at bedside. 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 Feels significantly improved energy and mobility (his son had to carry him a few days ago). Reports no melena /hematochezia/hematemesis. Following endoscopy, hgb has been stable and potential cause of bleeding has been effectively staunched, so will monitor and transfuse if downtrending past 8. Regarding NSTEMI v. demand ischemia 2/2 anemia , cardiology recommendation of metoprolol, likely to start in the morning tomorrow if pressure and hemoglobin remain stable.
[2018-02-07] MEDS: FLUTICASONE/SALMETEROL 100/50 (ADVAIR) 14 PUFF/1 INHALER INH SCH ×2 (07:51→21:12)
[2018-02-07] MEDS: HYDROCORTISONE IV 100 MG in SYRINGE 0 ML IV SCH ×3 (07:51→21:12)
--- NOTE | 2018-02-07 08:01 | Cardiology Follow-Up ---
Subjective Date of Service: Feb 07, 2018. Pt evaluation today including: conversation w/ patient, physical exam, chart review, lab review, review of studies, review of inpatient medication list History of Present Illness Mr. 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 He states that he has been hospitalized 3 separate occasions for GI bleeding, including present hospitalization. He has received blood transfusion during all 3 hospitalizations. He denies chest pain, shortness of breath at rest, orthopnea, syncope, near- syncope, or edema. He continues to have melena and estimates that he had a few episodes overnight. He denies palpitations although telemetry did demonstrate nonsustained tachycardia (SVT and also 1 episode of wide complex tachycardia). He does have mild dyspnea with exertion. Review of systems: As above. Medications Current Inpatient Medications Medications (Trade) Dose Ordered Sig/Cole Route Start Time Stop Time Status Last Admin Dose Admin Ioversol (Optiray 320) 100 ml UD PRN IV 02/05/18 00:30 02/09/18 00:29 Sodium Chloride 1,000 ml @ 75 mls/hr [id number] IV 02/05/18 05:00 03/07/18 04:59 02/06/18 21:10 75 MLS/HR Acetaminophen (Tylenol Tab) 650 mg Q4H PRN PO 02/05/18 03:15 03/07/18 03:14 Ondansetron HCl (Zofran Inj) 4 mg Q6H PRN IV 02/05/18 03:15 03/07/18 03:14 Albuterol Sulfate (Ventolin 0.083% 2.5MG/3ML Neb) 2.5 mg QID PRN INH 02/05/18 03:30 03/07/18 03:29 Salmeterol Xinafoate/ Fluticasone (Advair Diskus 100/50 Inh) 1 puff BID INH 02/05/18 09:00 03/07/18 08:59 02/06/18 21:09 1 PUFF Albuterol/ Ipratropium (Duoneb) 3 ml Q6R INH 02/05/18 09:00 03/07/18 08:59 02/07/18 07:00 3 ML Hydrocortisone Sodium Succinate 100 mg/Syringe 2 ml @ 4 mls/min TID IV 02/05/18 09:00 02/08/18 08:59 02/06/18 21:10 4 MLS/MIN Budesonide (Pulmicort Respules 0.5MG/ 2ML Neb Soln) 0.5 mg BIDR INH 02/05/18 08:00 03/07/18 07:59 02/07/18 07:00 0.5 MG Pantoprazole Sodium 40 mg/ Dextrose 100 ml @ 20 mls/hr Q5H IV 02/05/18 05:30 03/07/18 05:29 02/07/18 06:52 20 MLS/HR Metoprolol Tartrate (Lopressor Tab) 12.5 mg QAM PO 02/06/18 10:00 03/08/18 09:59 02/06/18 11:35 12.5 MG Objective Vital Signs Past 12 Hours Date Time Temp Pulse Resp B/P (MAP) Pulse Ox O2 Delivery O2 Flow Rate FiO2 02/07/18 07:00 92 16 98 Room Air 02/07/18 03:51 36.3 91 18 119/66 (83) 99 Room Air 02/07/18 01:47 86 16 95 Room Air 02/07/18 00:02 Room Air 02/06/18 21:11 36.8 91 18 108/63 (78) 96 Room Air 02/06/18 20:00 Room Air Last Recorded Weight-Kilograms: 63.100 Physical Exam Gen.: No acute distress. Alert and oriented. HEENT: Anicteric sclera. Neck: No JVD. Cardiac: PMI was nondisplaced. No ventricular heave. Regular. Normal S1-S2. No audible murmurs, rubs, or gallops. Pulmonary: Decreased breath sounds throughout with expiratory wheezing bilaterally. Abdomen: Soft, nontender, nondistended, with normoactive bowel sounds. No bruits noted. Extremities: 2+ radial pulses bilaterally. 2+ posterior tibialis pulses bilaterally. No edema or cyanosis. Psychiatric: Affect appears appropriate. Data Laboratory Results: Last 24 Hours Test 02/06/18 12:19 02/06/18 18:15 02/06/18 23:40 02/07/18 06:36 Hemoglobin 8.5 g/dL 8.5 g/dL 8.2 g/dL 7.8 g/dL Hematocrit 25.4 % 24.5 % 23.9 % 23.3 % Telemetry personally reviewed: Nonsustained SVT, 8 beats at 2:09 a.m.. Thirteen be run of wide complex tachycardia at 6:03 p.m. on 02/06/2018. Assessment and Plan ASSESSMENT/PLAN: 1. NSTEMI: He did not present with acute coronary syndrome but rather profound anemia due to active GI bleeding. Elevated enzymes are likely secondary to the fact that he has had demand ischemia. Cannot rule out baseline underlying ischemic heart disease however minimal calcifications noted on CT scan. Aspirin is contraindicated while bleeding and he reports hives when taking on a regular basis. Cardiac catheterization is not recommended given active GI bleed. He denies angina today. Would recommend initiation of beta-jatin once his bleeding has been controlled so as not to precipitate hypotension, which could worsen with worsening bleeding. 2. Cardiomyopathy: May be secondary to profound anemia/acute illness with poor perfusion due to acute GI bleed anemia. Outside echo report requested and reviewed from 2013. This was reportedly the most recent although he thought he had 1 more recently. His LV systolic function was normal in 2013 Obtain records. Consider metoprolol succinate and MOLLY-inhibitor however with active bleeding and mild hypotension, there is concern for worsening hypotension with poor overall reserve. Would initiate these medications when his bleeding resolves and hemoglobin stabilizes. He does not appear to be hypervolemic. 3. Sinus tachycardia: Resolved after receiving further blood transfusion. 4. Pulmonary hypertension: Likely secondary to his documented pulmonary issues. He does not appear to be hypervolemic. 5. Mitral regurgitation: Non severe. This can be followed over time. This appears to be a chronic issue based on 2013 echo at outside hospital. 6. SVT/wide complex tachycardia: Nonsustained and asymptomatic. He did receive metoprolol tartrate yesterday from the primary service but once daily. Recommend metoprolol succinate due to LV systolic dysfunction when his bleeding has resolved as he has been intermittently hypotensive. 7. Acute GI bleed: He continues to have melena. High risk for any procedure at this point however he continues to bleed and he is acceptable of this risk. 8. Disposition: Cardiology will continue to follow. I will be away from the hospital for tomorrow. Please call on-call optometric technician for questions or concerns.
[2018-02-07] MEDS: SODIUM CHLORIDE 0.9% 1000ML 1,000 ML IV SCH (10:50)
[2018-02-07] MEDS ORDERED: SODIUM CHLORIDE 0.9% 500ML 500 ML IV ONE (11:30)
--- NOTE | 2018-02-07 11:30 | History & Physical Bridge Note ---
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 Taking steroids recently. Plan for egd for evaluation of pudz. Consent obtained in pre-op area. Discussed plan and risk of procedure with son- he and patient voiced understanding of the risk associated with the procedure.
--- NOTE | 2018-02-07 11:48 | Gastroenterology Progress Note ---
Progress Note Date of Service: Feb 07, 2018 Subjective Pt evaluation today including: conversation w/ patient, physical exam, chart review, lab review, review of inpatient medication list Pt reports still having dark tarry stools overnight. Denies any abd pain, n/v. H /H 7.8/23 (total of 3U PRBC). Review of Systems Constitutional: No fever Respiratory: No cough, No shortness of breath Cardiac: No chest pain Abdomen: + GI bleeding, No pain, No nausea, No vomiting Medications Current Inpatient Medications Medications (Trade) Dose Ordered Sig/Cole Route Start Time Stop Time Status Last Admin Dose Admin Ioversol (Optiray 320) 100 ml UD PRN IV 02/05/18 00:30 02/09/18 00:29 Acetaminophen (Tylenol Tab) 650 mg Q4H PRN PO 02/05/18 03:15 03/07/18 03:14 Ondansetron HCl (Zofran Inj) 4 mg Q6H PRN IV 02/05/18 03:15 03/07/18 03:14 Albuterol Sulfate (Ventolin 0.083% 2.5MG/3ML Neb) 2.5 mg QID PRN INH 02/05/18 03:30 03/07/18 03:29 Salmeterol Xinafoate/ Fluticasone (Advair Diskus 100/50 Inh) 1 puff BID INH 02/05/18 09:00 03/07/18 08:59 02/07/18 07:51 1 PUFF Albuterol/ Ipratropium (Duoneb) 3 ml Q6R INH 02/05/18 09:00 03/07/18 08:59 02/07/18 07:00 3 ML Hydrocortisone Sodium Succinate 100 mg/Syringe 2 ml @ 4 mls/min TID IV 02/05/18 09:00 02/08/18 08:59 02/07/18 07:51 4 MLS/MIN Budesonide (Pulmicort Respules 0.5MG/ 2ML Neb Soln) 0.5 mg BIDR INH 02/05/18 08:00 03/07/18 07:59 02/07/18 07:00 0.5 MG Pantoprazole Sodium 40 mg/ Dextrose 100 ml @ 20 mls/hr Q5H IV 7/14/18 05:30 03/07/18 05:29 02/07/18 06:52 20 MLS/HR Sodium Chloride 500 ml @ 15 mls/hr Q24H ONCE IV 02/07/18 11:30 02/08/18 11:29 Objective Vital Signs Date Time Temp Pulse Resp B/P (MAP) Pulse Ox O2 Delivery O2 Flow Rate FiO2 02/07/18 11:19 36.6 98 20 139/95 (110) 97 Room Air 02/07/18 08:10 36.6 94 18 105/64 (78) 94 Room Air 02/07/18 08:00 Room Air 02/07/18 07:00 92 16 98 Room Air 02/07/18 03:51 36.3 91 18 119/66 (83) 99 Room Air 02/07/18 01:47 86 16 95 Room Air 02/07/18 00:02 Room Air 02/06/18 21:11 36.8 91 18 108/63 (78) 96 Room Air 02/06/18 20:00 Room Air 02/06/18 19:22 37.1 93 20 107/70 (82) 99 Room Air 02/06/18 19:16 91 16 96 Room Air 02/06/18 17:43 Room Air 02/06/18 15:28 37.0 95 20 122/73 (89) 96 Room Air 02/06/18 14:49 36.8 95 18 116/74 97 02/06/18 14:28 91 18 123/71 98 02/06/18 14:17 71 16 97 Room Air 02/06/18 14:00 36.8 88 16 110/70 98 02/06/18 14:00 90 18 110/70 97 02/06/18 13:45 88 18 107/67 97 02/06/18 13:30 90 16 118/59 95 02/06/18 13:15 93 18 113/70 96 02/06/18 13:00 86 18 126/73 97 02/06/18 12:45 90 16 105/68 96 02/06/18 12:25 36.7 106 16 126/88 98 02/06/18 12:23 36.7 106 18 126/88 (101) 98 Room Air Physical Exam General Appearance: WD/WN, no apparent distress Eyes: normal inspection, PERRL, EOMI Neck: supple, no JVD, trachea midline Respiratory/Chest: normal breath sounds, no respiratory distress, no accessory muscle use Cardiovascular: regular rate, rhythm, no gallop, no murmur Abdomen: normal bowel sounds, non tender, soft Extremities: normal inspection, no pedal edema, no calf tenderness Neurologic/Psych: alert, normal mood/affect, oriented x 3 Skin: normal color, no jaundice, no rash Laboratory Results Last 24 Hours Test 02/06/18 12:19 02/06/18 18:15 02/06/18 23:40 02/07/18 06:36 Hemoglobin 8.5 g/dL 8.5 g/dL 8.2 g/dL 7.8 g/dL Hematocrit 25.4 % 24.5 % 23.9 % 23.3 % Assessment and Plan 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 Troponin up with EKG changes. His H/H had been stable Hgb around 8 since 3U PRBC transfusion but still is having melena. He is NPO and already on PPI gtt. He's been evaluated by Cardiology and Anesthesia - at high risk for procedures but acceptable risk from Cardiology standpoint. EGD to be performed today by Dr. Jonas. Pt is aware of him being high risk for procedure/anesthesia complications including heart attack, stroke, I have seen the patient and discussed his case with him and his family. Patient underwent EGD in the endsocopy unit. Findings from the EGD were significant for grade b esophagitis, hematin in the stomach (fundus/body) on insertion, no visible gastric ulcer was seen. duodenal ulcer with clot in the duodenal bulb, thought to be in the posterior wall close to the duodenal sweep. with lavage, the clot partially was removed but there was no active bleeding noted. the area around this clot was injected with 3 cc of 1/10,000 epinephrine and treated with gold probe hematin in d2- with lavage, there was no visible vessel noted here The patient did fine hemodynamically during the procedure and is recovering in the post procedure area. Recommendations: Keep NPO Restart IV PPI infusion for 72 hours Patient needs to be off steroids and also needs to not take NSAID's- this is likely the combination that led to formation of the ulcer Would observe how he does with PPI infusion on board.
--- NOTE | 2018-02-07 12:07 | GI REPORT ---
Patient Name: Oscar Gonzalez Procedure Date: 02/07/2018 11:43 AM Date of : 1940 Admit Type: Inpatient Age: 77 Gender: Male Attending MD: Lucero Jonas MD Procedure: Upper GI endoscopy Providers: Lucero Jonas MD Referring MD: Abram Ace Indications: Melena Medicines: Propofol per Anesthesia Complications: No immediate complications. Estimated Blood Loss: Estimated blood loss: none. Procedure: Pre-Anesthesia Assessment: - Patient identification and proposed procedure were verified prior to the procedure by the physician and the nurse. The procedure was verified in the pre-procedure area. - Prior to the procedure, a History and Physical was performed, and patient medications, allergies and sensitivities were reviewed. The patient's tolerance of previous anesthesia was reviewed. - The risks and benefits of the procedure and the sedation options and risks were discussed with the patient. All questions were answered and informed consent was obtained. - ASA Grade Assessment: IV - A patient with severe systemic disease that is a constant threat to life. After obtaining informed consent, the endoscope was passed under direct vision. Throughout the procedure, the patient's blood pressure, pulse, and oxygen saturations were monitored continuously. The scope was introduced through the mouth, and advanced to the second part of duodenum. The upper GI endoscopy was accomplished without difficulty. The patient tolerated the procedure well. Findings: LA Grade B (one or more mucosal breaks less than 5 mm, not extending between tops of 2 mucosal folds) esophagitis with no bleeding was found. Hematin (altered blood/fegluc-iboxjr-wfnu material) was found in the gastric fundus and body. One non-bleeding cratered duodenal ulcer with adherent clot was found in the first portion of the duodenum at the duodenal sweep. The lesion was 4 mm in largest dimension. An adherent clot was noted that was partially removed with lavage. With lavage there was no visible vessel identified but clot remained adherent. The area was successfully injected with 3 mL of a 1:10,000 solution of epinephrine for hemostasis. Coagulation for hemostasis using a gold probe was successful. There was no active bleeding at the end of the procedure. The second portion of the duodenum was normal. Impression: - LA Grade A esophagitis. - Hematin (altered blood/izvpqb-ntlxxw-rvct material) in the gastric fundus and gastric body. - One duodenal ulcer with adherent clot with partial removal of the clot with lavage was seen at the duodenal sweep. Injected with 3 cc of epi and then treated with a gold probe. No active bleeding was noted at the end of the procedure. - Normal second portion of the duodenum. Recommendation: - Restart PPI infusion and continue for 72 hours. - NPO for the rest of today. Thereafter, if no bleeding, can consider a clear liquid diet. - Return to [facility] when discharge criteria have been met. - The patient's cardiac status was noted to be stable during the procedure and immediately post procedure. Lucero Jonas MD 02/07/2018 12:07:20 PM This report has been signed electronically. Note Initiated On: 02/07/2018 11:43 AM Number of Addenda: 0 I attest to the content of the Intraoperative Record and orders documented therein, exceptions below {[id number]}
[2018-02-07] MEDS ORDERED: LIDOCAINE HCL 2% 2 ML VIAL (20MG/ML) ONE (12:11)
[2018-02-07] MEDS ORDERED: PROPOFOL IV EMULSION 10 MG/ML 20 ML VIAL ONE (12:11)
[2018-02-07] MEDS ORDERED: EpINEphrine INJ 1MG/ML AMP 1 MG/ML AMP ONE (12:11)
--- NOTE | 2018-02-07 12:26 | Anesthesiology Progress Note ---
Anesthesia Post Op Note Date & Time Feb 07, 2018 at 12:26 Vital Signs Pain Intensity: 0.0 Vital Signs Past 12 Hours Date Time Temp Pulse Resp B/P (MAP) Pulse Ox O2 Delivery O2 Flow Rate FiO2 02/07/18 11:49 36.8 91 19 133/69 (90) 97 Room Air 02/07/18 11:19 36.6 98 20 139/95 (110) 97 Room Air 02/07/18 08:10 36.6 94 18 105/64 (78) 94 Room Air 02/07/18 08:00 Room Air 02/07/18 07:00 92 16 98 Room Air 02/07/18 03:51 36.3 91 18 119/66 (83) 99 Room Air 02/07/18 01:47 86 16 95 Room Air Notes Mental Status: alert / awake / arousable, participated in evaluation Pt Amnestic to Procedure: Yes Nausea / Vomiting: adequately controlled Pain: adequately controlled Airway Patency, RR, SpO2: stable & adequate BP & HR: stable & adequate Hydration State: stable & adequate Anesthetic Complications: no major complications apparent
[2018-02-07 14:02] LABS: HEMATOCRIT 25.2 % (42-52); HEMOGLOBIN 8.6 g/dL (14.0-18.0)
[2018-02-07 20:15] LABS: HEMATOCRIT 23.7 % (42-52)
[2018-02-08] VITALS (14 sets, daily range): BP systolic 123–146; BP diastolic 74–92; PULSE 71–102; TEMP 36.5–37; O2SAT 91–97
[2018-02-08] MEDS: PANTOprazole INJ 40 MG in DEXTROSE 5% 100ML IV SCH ×5 (02:40→23:24)
[2018-02-08] MEDS: ALBUT/IPRATROP 3MG/0.5MG NEB 3 ML VIAL INH SCH ×4 (02:40→19:57)
[2018-02-08 07:12] LABS: HEMATOCRIT 21.5 % (42-52); HEMOGLOBIN 7.4 g/dL (14.0-18.0); MEAN CORPUSCULAR HGB CONC 34.4 g/dl (32-36); MEAN PLATELET VOLUME 9.3 fL (7.4-10.4); PLATELET COUNT 158 K/uL (130-400); RED CELL DISTRIBUTION WIDTH CV 18.6 % (11.5-14.5); RED CELL DISTRIBUTION WIDTH SD 56.9 fL (36.4-46.3); WHITE BLOOD COUNT 7.94 K/uL (4.8-10.8)
[2018-02-08] MEDS: BUDESONIDE 0.5 MG/2 ML VIAL (PULMICORT) INH SCH ×2 (07:13→19:57)
[2018-02-08 07:43] LABS: CALCIUM 6.2 mg/dl (8.5-10.1); CREATININE 0.81 mg/dl (0.60-1.40); POTASSIUM 3.1 mmol/L (3.5-5.1)
--- NOTE | 2018-02-08 08:21 | Family Medicine Progress Note ---
Progress Note Date of Service Feb 08, 2018. Subjective AMOS overnight. Dark stools overnight. Conversant. ROS See HPI for pertinent positives and negatives. Otherwise denies new headache, vision change, chest pain, dyspnea, abdominal pain, loose or bloody stools, dysuria, or numbness tingling in extremities. Medications Current Inpatient Medications Medications (Trade) Dose Ordered Sig/Cole Route Start Time Stop Time Status Last Admin Dose Admin Ioversol (Optiray 320) 100 ml UD PRN IV 02/05/18 00:30 02/09/18 00:29 Acetaminophen (Tylenol Tab) 650 mg Q4H PRN PO 02/05/18 03:15 03/07/18 03:14 Ondansetron HCl (Zofran Inj) 4 mg Q6H PRN IV 02/05/18 03:15 03/07/18 03:14 Albuterol Sulfate (Ventolin 0.083% 2.5MG/3ML Neb) 2.5 mg QID PRN INH 02/05/18 03:30 03/07/18 03:29 Salmeterol Xinafoate/ Fluticasone (Advair Diskus 100/50 Inh) 1 puff BID INH 02/05/18 09:00 03/07/18 08:59 02/08/18 20:39 1 PUFF Albuterol/ Ipratropium (Duoneb) 3 ml Q6R INH 02/05/18 09:00 03/07/18 08:59 02/08/18 19:57 3 ML Budesonide (Pulmicort Respules 0.5MG/ 2ML Neb Soln) 0.5 mg BIDR INH 02/05/18 08:00 03/07/18 07:59 02/08/18 19:57 0.5 MG Pantoprazole Sodium 40 mg/ Dextrose 100 ml @ 20 mls/hr Q5H IV 02/05/18 05:30 03/07/18 05:29 02/08/18 18:44 20 MLS/HR Potassium Chloride/Sodium Chloride 1,000 ml @ 80 mls/hr [id number] IV 02/08/18 10:45 03/10/18 10:44 02/08/18 11:20 80 MLS/HR Prednisone (PredniSONE TAB) 10 mg QAM PO 02/09/18 09:00 03/11/18 08:59 Objective Vital Signs Date Time Temp Pulse Resp B/P (MAP) Pulse Ox O2 Delivery O2 Flow Rate FiO2 02/08/18 20:00 94 Room Air 02/08/18 19:58 82 16 95 Room Air 02/08/18 19:19 37.0 102 20 146/92 (110) 94 Room Air 02/08/18 16:04 36.7 90 18 126/75 96 02/08/18 16:00 Room Air 02/08/18 15:07 93 18 129/74 96 02/08/18 14:38 85 18 137/78 95 02/08/18 14:20 71 16 96 Room Air 02/08/18 14:00 36.7 89 18 142/88 96 02/08/18 08:00 93 Room Air 02/08/18 07:12 96 16 93 Room Air 02/08/18 07:05 36.8 97 23 123/74 (90) 97 Room Air 02/08/18 03:41 36.5 96 22 123/74 (90) 97 Room Air 02/08/18 02:40 97 18 94 Room Air 02/07/18 23:42 36.8 86 19 109/64 (79) 95 Room Air Physical Exam Notes: GENERAL: Awake, alert, tired appearing, in no distress. Mild pallor. HENT: Normocephalic, atraumatic. EYES: Normal conjunctiva. Sclera non-icteric. NECK: Supple. Full range of motion. no JVD RESPIRATORY: Clear to auscultation. CARDIAC: Regular rate, normal rhythm. Extremities warm and well perfused. Pulses equal. ABDOMEN: Soft, non-distended. No tenderness to palpation. No rebound or guarding. No masses. LOWER EXTREMITIES: Calves are equal size bilaterally and non-tender. No edema. No discoloration. NEURO: No motor deficits noted. SKIN: No rash or jaundice noted. Laboratory Results 02/08/18 06:44 02/08/18 18:29 02/08/18 06:44 Test 02/08/18 06:44 Red Blood Count 2.39 M/uL (4.7-6.1) Mean Corpuscular Volume 90.0 fL (80-100) Mean Corpuscular Hemoglobin 31.0 pg (25-34) Mean Corpuscular Hemoglobin Concent 34.4 g/dl (32-36) RDW Standard Deviation 56.9 fL (36.4-46.3) RDW Coefficient of Variation 18.6 % (11.5-14.5) Mean Platelet Volume 9.3 fL (7.4-10.4) Anion Gap 7.0 mmol/L (3-11) Est Creatinine Clear Calc Drug Dose 62.0 ml/min Estimated GFR () 98.0 Estimated GFR (Non- 84.5 BUN/Creatinine Ratio 36.5 (10-20) Calcium Level 6.2 mg/dl (8.5-10.1) Assessment and Plan 77M here with 3 days of lethargy [employer] in the setting of melena and 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 Recommend PPI gtt x 72h. - H&H Q6H. 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 No Oxygen requirement here. - X-ray results show numerous chronic fibrotic lung changes - Chest CT report shows pneumoconiosis and emphysema. - Duonebs Q6H Scheduled. + Albuterol PRN, Pulmicort BID. consider addition of atrovent at discharge - Takes prednisone 10 mg daily at home - has missed 3 days worth - placed on stress doses of IV hydrocortisone - to be completed today - weighing risks/ benefits, may benefit from continue prednisone daily treatment but will require PPI co-therapy for duration on discharge. NSTEMI - Likely 2/2 to demand from anemia - Echo with Likely new Cardiomyopathy (per patient, he had an echo at [facility] in Sep that did not show abnormalities, records requested) - Possibly has been having Silent OR's - Recent SOB could be cardiac>pulmonary - Repeat EKG - st depressions noted - Cardiology Consult appreciated- Med management for now (though aspirin is contraindicated and BB/ACEI may compromise his hemodynamics)- metoprolol succinate recommended Dispo: Remain on TELE DVT Proph: SCDs. Chemical ppx contraindicated. Diet: NPO + IVF FULL CODE Resident Tracking Resident Involvement: Resident Care Provided Care Provided: Adult Hospital Medicine Assessment/Plan Resident Physician Supervision Note: I was present with Dr. Pérez during the history and exam. I discussed the case with the resident and agree with the findings and plan as documented in the note. Any exceptions or clarifications are listed here: Pt seen and examined at bedside. Persistent bloody bowel movements following endoscopy. Further information: also taking excedrin for chronic hip pain atop pred chronically and pred burst. Symptomatically, fatigue persistent but stable. After discussion with GI, will continue to monitor H/H and transfuse if downtrending past 8 with likely repeat endoscopy v further evaluation. Regarding NSTEMI v. demand ischemia 2/2 anemia, cardiology recommendation of metoprolol, will continue to hold 2/2 continued bleeding and may start once stable and resolved.
--- NOTE | 2018-02-08 08:47 | Gastroenterology Progress Note ---
Progress Note Date of Service: Feb 08, 2018 Subjective Pt evaluation today including: conversation w/ patient, physical exam, chart review, lab review, review of studies, review of inpatient medication list AM H/H 7.11/13. Pt still having some melena but said stool may be slightly formed and not as much bleeding. Denies any n/v, abd pain Review of Systems Constitutional: No fever, No chills Respiratory: No cough, No shortness of breath Cardiac: No chest pain Abdomen: + GI bleeding, No pain, No nausea, No vomiting Medications Current Inpatient Medications Medications (Trade) Dose Ordered Sig/Cole Route Start Time Stop Time Status Last Admin Dose Admin Ioversol (Optiray 320) 100 ml UD PRN IV 02/05/18 00:30 02/09/18 00:29 Acetaminophen (Tylenol Tab) 650 mg Q4H PRN PO 02/05/18 03:15 03/07/18 03:14 Ondansetron HCl (Zofran Inj) 4 mg Q6H PRN IV 02/05/18 03:15 03/07/18 03:14 Albuterol Sulfate (Ventolin 0.083% 2.5MG/3ML Neb) 2.5 mg QID PRN INH 02/05/18 03:30 03/07/18 03:29 Salmeterol Xinafoate/ Fluticasone (Advair Diskus 100/50 Inh) 1 puff BID INH 02/05/18 09:00 03/07/18 08:59 02/07/18 21:12 1 PUFF Albuterol/ Ipratropium (Duoneb) 3 ml Q6R INH 02/05/18 09:00 03/07/18 08:59 02/08/18 07:13 3 ML Hydrocortisone Sodium Succinate 100 mg/Syringe 2 ml @ 4 mls/min TID IV 02/05/18 09:00 02/08/18 08:59 02/07/18 21:12 4 MLS/MIN Budesonide (Pulmicort Respules 0.5MG/ 2ML Neb Soln) 0.5 mg BIDR INH 02/05/18 08:00 03/07/18 07:59 02/08/18 07:13 0.5 MG Pantoprazole Sodium 40 mg/ Dextrose 100 ml @ 20 mls/hr Q5H IV 02/05/18 05:30 03/07/18 05:29 02/08/18 06:56 20 MLS/HR Sodium Chloride 500 ml @ 15 mls/hr Q24H ONCE IV 02/07/18 11:30 02/08/18 11:29 Objective Vital Signs Date Time Temp Pulse Resp B/P (MAP) Pulse Ox O2 Delivery O2 Flow Rate FiO2 02/08/18 07:12 96 16 93 Room Air 02/08/18 07:05 36.8 97 23 123/74 (90) 97 Room Air 02/08/18 03:41 36.5 96 22 123/74 (90) 97 Room Air 02/08/18 02:40 97 18 94 Room Air 02/07/18 23:42 36.8 86 19 109/64 (79) 95 Room Air 02/07/18 20:00 Room Air 02/07/18 19:32 80 18 95 Room Air 02/07/18 19:04 36.7 92 18 123/71 (88) 95 Room Air 02/07/18 15:32 36.6 90 18 110/68 (82) 97 Room Air 02/07/18 14:09 84 16 94 Room Air 02/07/18 13:31 36.6 84 18 119/75 (90) 94 Room Air 02/07/18 12:53 89 20 118/74 (89) 97 Room Air 02/07/18 12:38 88 20 114/77 (89) 97 Room Air 02/07/18 12:28 91 20 115/74 (88) 97 Room Air 02/07/18 12:13 92 20 116/72 (87) 95 Room Air 02/07/18 11:49 36.8 91 19 133/69 (90) 97 Room Air 02/07/18 11:19 36.6 98 20 139/95 (110) 97 Room Air Physical Exam General Appearance: WD/WN, no apparent distress Eyes: normal inspection, PERRL, EOMI Neck: supple, no JVD, trachea midline Respiratory/Chest: no respiratory distress, no accessory muscle use, + decreased breath sounds Cardiovascular: regular rate, rhythm, no gallop, no murmur Abdomen: normal bowel sounds, non tender, soft Extremities: normal inspection Neurologic/Psych: alert, normal mood/affect, oriented x 3 Skin: normal color, no jaundice, no rash Laboratory Results Last 24 Hours Test 02/07/18 13:52 02/07/18 20:02 02/08/18 06:44 Hemoglobin 8.6 g/dL 8.0 g/dL 7.4 g/dL Hematocrit 25.2 % 23.7 % 21.5 % White Blood Count 7.94 K/uL Red Blood Count 2.39 M/uL Mean Corpuscular Volume 90.0 fL Mean Corpuscular Hemoglobin 31.0 pg Mean Corpuscular Hemoglobin Concent 34.4 g/dl RDW Standard Deviation 56.9 fL RDW Coefficient of Variation 18.6 % Platelet Count 158 K/uL Mean Platelet Volume 9.3 fL Sodium Level 144 mmol/L Potassium Level 3.1 mmol/L Chloride Level 116 mmol/L Carbon Dioxide Level 21 mmol/L Anion Gap 7.0 mmol/L Blood Urea Nitrogen 30 mg/dl Creatinine 0.81 mg/dl Est Creatinine Clear Calc Drug Dose 62.0 ml/min Estimated GFR () 98.0 Estimated GFR (Non- 84.5 BUN/Creatinine Ratio 36.5 Random Glucose 104 mg/dl Calcium Level 6.2 mg/dl Assessment and Plan 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 Troponin up with EKG changes. EGD done on 02/07 showed Grade B esophagitis w hematin in body, + duodenal bulb ulcer treated w epinephrine and gold. His H/H dropped some this AM and he still is having melena though noted stools are a bit more formed and not as bloody. - Pls keep NPO today - PPI gtt x 72 hrs after EGD - Will re-evaluated in the afternoon to determine need for repeat EGD evaluation or not. - I spoke w hospitalist Dr. Unger to give pt another unit of PRBC today. Monitor H/H. I have seen and examined the patient with NICHOL Quarles. 1/2 gram drop in hgb today. one reported episode of ? black stool overnite. Patient overall though is feeling better. Exam significant for mild wheezing, benign belly exam, no rashes. Agree with further plan of care as per above.
[2018-02-08] MEDS: FLUTICASONE/SALMETEROL 100/50 (ADVAIR) 14 PUFF/1 INHALER INH SCH ×2 (09:25→20:39)
[2018-02-08] MEDS: NSS + 20MEQ KCL 1000ML 1,000 ML IV SCH (11:20)
[2018-02-08] MEDS: POTASSIUM CHLR 10 MEQ / WTR 100 ML IV SCH ×4 (12:11→20:38)
[2018-02-08 18:51] LABS: HEMATOCRIT 24.4 % (42-52); HEMOGLOBIN 8.3 g/dL (14.0-18.0)
[2018-02-09] VITALS (10 sets, daily range): BP systolic 100–149; BP diastolic 62–79; PULSE 66–98; TEMP 36.3–36.6; O2SAT 93–99
[2018-02-09] MEDS: ALBUT/IPRATROP 3MG/0.5MG NEB 3 ML VIAL INH SCH ×4 (02:23→19:15)
[2018-02-09] MEDS: NSS + 20MEQ KCL 1000ML 1,000 ML IV SCH (03:52)
[2018-02-09] MEDS: PANTOprazole INJ 40 MG in DEXTROSE 5% 100ML IV SCH ×4 (04:20→19:28)
[2018-02-09] MEDS: BUDESONIDE 0.5 MG/2 ML VIAL (PULMICORT) INH SCH ×2 (07:03→19:16)
[2018-02-09 07:34] LABS: HEMATOCRIT 22.5 % (42-52); HEMOGLOBIN 7.9 g/dL (14.0-18.0); MEAN CELL VOLUME 88.9 fL (80-100); MEAN CORPUSCULAR HEMOGLOBIN 31.2 pg (25-34); MEAN CORPUSCULAR HGB CONC 35.1 g/dl (32-36); MEAN PLATELET VOLUME 9.7 fL (7.4-10.4); NUCLEATED RED BLOOD CELL ABS 0.06 K/uL (0-0); PLATELET COUNT 161 K/uL (130-400); RED CELL DISTRIBUTION WIDTH SD 57.4 fL (36.4-46.3); WHITE BLOOD COUNT 10.86 K/uL (4.8-10.8)
--- NOTE | 2018-02-09 07:53 | Family Medicine Progress Note ---
Progress Note Date of Service Feb 09, 2018. Subjective New oxygen requirement 2-3 L O2. +dyspnea + some dark stools overnight ROS See HPI for pertinent positives and negatives. Otherwise denies new headache, vision change, chest pain, abdominal pain, dysuria, or numbness tingling in extremities. Medications Current Inpatient Medications Medications (Trade) Dose Ordered Sig/Cole Route Start Time Stop Time Status Last Admin Dose Admin Acetaminophen (Tylenol Tab) 650 mg Q4H PRN PO 02/05/18 03:15 03/07/18 03:14 Ondansetron HCl (Zofran Inj) 4 mg Q6H PRN IV 02/05/18 03:15 03/07/18 03:14 Albuterol Sulfate (Ventolin 0.083% 2.5MG/3ML Neb) 2.5 mg QID PRN INH 02/05/18 03:30 03/07/18 03:29 Salmeterol Xinafoate/ Fluticasone (Advair Diskus 100/50 Inh) 1 puff BID INH 02/05/18 09:00 03/07/18 08:59 02/09/18 08:56 1 PUFF Albuterol/ Ipratropium (Duoneb) 3 ml Q6R INH 02/05/18 09:00 03/07/18 08:59 02/09/18 07:03 3 ML Budesonide (Pulmicort Respules 0.5MG/ 2ML Neb Soln) 0.5 mg BIDR INH 02/05/18 08:00 03/07/18 07:59 02/09/18 07:03 0.5 MG Pantoprazole Sodium 40 mg/ Dextrose 100 ml @ 20 mls/hr Q5H IV 02/05/18 05:30 03/07/18 05:29 02/09/18 04:20 20 MLS/HR Potassium Chloride/Sodium Chloride 1,000 ml @ 80 mls/hr [id number] IV 02/08/18 10:45 03/10/18 10:44 02/09/18 03:52 80 MLS/HR Prednisone (PredniSONE TAB) 10 mg QAM PO 02/09/18 09:00 03/11/18 08:59 02/09/18 08:56 10 MG Metoprolol Succinate (Toprol Xl Tab) 25 mg QAM PO 02/09/18 09:15 03/11/18 09:14 Objective Vital Signs Date Time Temp Pulse Resp B/P (MAP) Pulse Ox O2 Delivery O2 Flow Rate FiO2 02/09/18 07:03 36.5 66 20 110/64 (79) 96 Nebulizer 02/09/18 07:03 95 20 96 Nasal Cannula 2.0 02/09/18 06:00 Nasal Cannula 2.0 02/09/18 03:56 36.4 93 18 120/79 (93) 93 Room Air 02/09/18 02:23 77 22 95 Room Air 02/08/18 23:59 Room Air 02/08/18 23:53 36.9 96 20 136/87 (103) 91 Room Air 02/08/18 20:00 94 Room Air 02/08/18 19:58 82 16 95 Room Air 02/08/18 19:19 37.0 102 20 146/92 (110) 94 Room Air 02/08/18 16:04 36.7 90 18 126/75 96 02/08/18 16:00 Room Air 02/08/18 15:07 93 18 129/74 96 02/08/18 14:38 85 18 137/78 95 02/08/18 14:20 71 16 96 Room Air 02/08/18 14:00 36.7 89 18 142/88 96 Physical Exam Notes: GENERAL: Awake, alert, well-appearing, in no distress HENT: Normocephalic, atraumatic. EYES: Normal conjunctiva. Sclera non-icteric. NECK: Supple. Full range of motion. no JVD RESPIRATORY: diminished at bases CARDIAC: Regular rate, normal rhythm. Extremities warm and well perfused. Pulses equal. ABDOMEN: Soft, non-distended. No tenderness to palpation. No rebound or guarding. No masses. LOWER EXTREMITIES: Calves are equal size bilaterally and non-tender. No edema. No discoloration. NEURO: No motor deficits noted. SKIN: No rash or jaundice noted. Laboratory Results 02/09/18 06:57 02/09/18 06:57 Test 02/09/18 06:57 Red Blood Count 2.53 M/uL (4.7-6.1) Mean Corpuscular Volume 88.9 fL (80-100) Mean Corpuscular Hemoglobin 31.2 pg (25-34) Mean Corpuscular Hemoglobin Concent 35.1 g/dl (32-36) RDW Standard Deviation 57.4 fL (36.4-46.3) RDW Coefficient of Variation 19.0 % (11.5-14.5) Mean Platelet Volume 9.7 fL (7.4-10.4) Nucleated RBC Absolute Count (auto) 0.06 K/uL (0-0) Nucleated Red Blood Cells % 0.5 % Anion Gap 8.0 mmol/L (3-11) Est Creatinine Clear Calc Drug Dose 71.7 ml/min Estimated GFR () 104.0 Estimated GFR (Non- 89.8 BUN/Creatinine Ratio 55.4 (10-20) Calcium Level 6.4 mg/dl (8.5-10.1) Assessment and Plan 77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 Recommend PPI gtt x 72h post EGD. Should he need further scoping, rec transfer. - H&H follow q12. Iatrogenic Hypervolemia; acute on chronic hypoxic respiratory failure - per cardio recs: Lasix 40 mg IV x 1. Goal of at least 1 liter negative today. - CXR negative for acute changes. 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 No Oxygen requirement here. - X-ray results show numerous chronic fibrotic lung changes - Chest CT report shows pneumoconiosis and emphysema. - Duonebs Q6H Scheduled. + Albuterol PRN, Pulmicort BID. consider addition of atrovent at discharge - Takes prednisone 10 mg daily at home - has missed 3 days worth - placed on stress doses of IV hydrocortisone - weighing risks/benefits, may benefit from continue prednisone daily treatment but will require PPI co-therapy for duration on discharge. NSTEMI - Likely 2/2 to demand from anemia - Echo with Likely new Cardiomyopathy (per patient, he had an echo at [facility] in Sep that did not show abnormalities, records requested) - Possibly has been having Silent LA's - Recent SOB could be cardiac>pulmonary - Repeat EKG - st depressions noted - Cardiology Consult appreciated- Med management for now (though aspirin is contraindicated and BB/ACEI may compromise his hemodynamics)- metoprolol succinate recommended Dispo: Remain on TELE DVT Proph: SCDs. Chemical ppx contraindicated. Diet: adv to clears today FULL CODE Continued [facility] stay due to: multiple IV medications needed Resident Tracking Resident Involvement: Resident Care Provided Care Provided: Adult [facility] Medicine Assessment/Plan Resident Physician Supervision Note: I was present with Dr. Pérez during the history and exam. I discussed the case with the resident and agree with the findings and plan as documented in the note. Any exceptions or clarifications are listed here: Pt seen and examined at bedside. Bowel movements remain dark per nursing but improved from previous. Patient states his fatigue has improved, but his breathing is bothering him at present. He reports he has minimal cough, and very mild LE swelling bilaterally. He is otherwise feeling well. On examination, S1/S2 nl RRR no MCG. CTAB w/ decreased BS at the b/l bases w/o rales/wheeze. Abd is NT/ND BS+ve Shortness of breath may be 2/2 fluid overload following multiple transfusions v. 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 Administered furosemide today with good response and some improvement subjectively per patient, but respiratory status may require steroid therapy increase if undelrying chronic disease is a prominent component. In that vein, after discussion with GI, continue PPI gtt for 72 hours post EGD (7.19) and monitor for H/H changes and hematochezia/ melena. If bleeding persists, GI encourages [place] [facility] [place] care to definitively treat bleeding. Regarding NSTEMI v. demand ischemia 2/2 anemia, cardiology recommendation of metoprolol, to start today.
[2018-02-09 08:07] LABS: CALCIUM 6.4 mg/dl (8.5-10.1); CREATININE 0.7 mg/dl (0.60-1.40); POTASSIUM 3.5 mmol/L (3.5-5.1)
--- NOTE | 2018-02-09 08:44 | Gastroenterology Progress Note ---
Progress Note Date of Service: Feb 09, 2018 Subjective Pt evaluation today including: conversation w/ patient, physical exam, chart review, lab review, review of inpatient medication list Pt having more SOB last night and this AM. Primary team and Cardiology aware per RN. He denies any abd pain, n/v. RN reports small smears of black stools on rectum when wiped. H/H slightly decreased overnight. Review of Systems Constitutional: No fever, No chills Respiratory: + shortness of breath, + dyspnea at rest, No cough Cardiac: No chest pain Abdomen: + see HPI, No pain, No nausea, No vomiting Medications Current Inpatient Medications Medications (Trade) Dose Ordered Sig/Cole Route Start Time Stop Time Status Last Admin Dose Admin Acetaminophen (Tylenol Tab) 650 mg Q4H PRN PO 02/05/18 03:15 03/07/18 03:14 Ondansetron HCl (Zofran Inj) 4 mg Q6H PRN IV 02/05/18 03:15 03/07/18 03:14 Albuterol Sulfate (Ventolin 0.083% 2.5MG/3ML Neb) 2.5 mg QID PRN INH 02/05/18 03:30 03/07/18 03:29 Salmeterol Xinafoate/ Fluticasone (Advair Diskus 100/50 Inh) 1 puff BID INH 02/05/18 09:00 03/07/18 08:59 02/08/18 20:39 1 PUFF Albuterol/ Ipratropium (Duoneb) 3 ml Q6R INH 02/05/18 09:00 03/07/18 08:59 02/09/18 07:03 3 ML Budesonide (Pulmicort Respules 0.5MG/ 2ML Neb Soln) 0.5 mg BIDR INH 02/05/18 08:00 03/07/18 07:59 02/09/18 07:03 0.5 MG Pantoprazole Sodium 40 mg/ Dextrose 100 ml @ 20 mls/hr Q5H IV 02/05/18 05:30 03/07/18 05:29 02/09/18 04:20 20 MLS/HR Potassium Chloride/Sodium Chloride 1,000 ml @ 80 mls/hr [id number] IV 02/08/18 10:45 03/10/18 10:44 02/09/18 03:52 80 MLS/HR Prednisone (PredniSONE TAB) 10 mg QAM PO 02/09/18 09:00 03/11/18 08:59 Objective Vital Signs Date Time Temp Pulse Resp B/P (MAP) Pulse Ox O2 Delivery O2 Flow Rate FiO2 02/09/18 07:03 36.5 66 20 110/64 (79) 96 Nebulizer 02/09/18 07:03 95 20 96 Nasal Cannula 2.0 02/09/18 06:00 Nasal Cannula 2.0 02/09/18 03:56 36.4 93 18 120/79 (93) 93 Room Air 02/09/18 02:23 77 22 95 Room Air 02/08/18 23:59 Room Air 02/08/18 23:53 36.9 96 20 136/87 (103) 91 Room Air 02/08/18 20:00 94 Room Air 02/08/18 19:58 82 16 95 Room Air 02/08/18 19:19 37.0 102 20 146/92 (110) 94 Room Air 02/08/18 16:04 36.7 90 18 126/75 96 02/08/18 16:00 Room Air 02/08/18 15:07 93 18 129/74 96 02/08/18 14:38 85 18 137/78 95 02/08/18 14:20 71 16 96 Room Air 02/08/18 14:00 36.7 89 18 142/88 96 Physical Exam General Appearance: WD/WN, no apparent distress Eyes: normal inspection, PERRL, EOMI Neck: supple, no JVD, trachea midline Respiratory/Chest: no accessory muscle use, + decreased breath sounds, + pertinent finding (appears dyspneic at rest ) Cardiovascular: regular rate, rhythm, no gallop, no murmur Abdomen: normal bowel sounds, non tender, soft Extremities: normal inspection, no pedal edema, no calf tenderness Neurologic/Psych: alert, normal mood/affect, oriented x 3 Skin: normal color, no jaundice, no rash Laboratory Results Last 24 Hours Test 02/08/18 18:29 02/09/18 06:57 Hemoglobin 8.3 g/dL 7.9 g/dL Hematocrit 24.4 % 22.5 % White Blood Count 10.86 K/uL Red Blood Count 2.53 M/uL Mean Corpuscular Volume 88.9 fL Mean Corpuscular Hemoglobin 31.2 pg Mean Corpuscular Hemoglobin Concent 35.1 g/dl RDW Standard Deviation 57.4 fL RDW Coefficient of Variation 19.0 % Platelet Count 161 K/uL Mean Platelet Volume 9.7 fL Nucleated RBC Absolute Count (auto) 0.06 K/uL Nucleated Red Blood Cells % 0.5 % Sodium Level 144 mmol/L Potassium Level 3.5 mmol/L Chloride Level 117 mmol/L Carbon Dioxide Level 19 mmol/L Anion Gap 8.0 mmol/L Blood Urea Nitrogen 39 mg/dl Creatinine 0.70 mg/dl Est Creatinine Clear Calc Drug Dose 71.7 ml/min Estimated GFR () 104.0 Estimated GFR (Non- 89.8 BUN/Creatinine Ratio 55.4 Random Glucose 85 mg/dl Calcium Level 6.4 mg/dl Assessment and Plan 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 Troponin up with EKG changes. EGD done on 02/07 showed Grade B esophagitis w hematin in body, + duodenal bulb ulcer treaed w epinephrine and gold. Received 1U PRBC yesterday, Hgb up to 8.3, now down to 7.9. He denies any abd pain, n/v. RN reports very small amt of black smear stool when wiped. He is having some SOB and dyspneic at rest. Primary team and Cardiology aware per RN and CXR, Lasix going to be ordered. - Ok for CL diet today - PPI gtt x 72 hrs after EGD - Monitor H/H and transfuse prn. I have seen and examined the patient with NICHOL Quarles. 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 S/p EGD 02/07 with duodenal ulcer in the bulb with clot, treated with epi + thermal therapy (Gold probe). D2 PPI infusion post intervention, stable hgb after transfusion of 1 unit on . Reported more sob this am- cxray without fluid noted in the lungs, given IV lasix, on oxygen. At this time, given his change in respiratory status and minimal amounts of melena and appropriate bump in hgb post transfusion, would complete IV PPI infusion through tomorrow and observe.
[2018-02-09] MEDS: FLUTICASONE/SALMETEROL 100/50 (ADVAIR) 14 PUFF/1 INHALER INH SCH ×2 (08:56→20:08)
[2018-02-09] MEDS ORDERED: FUROSEMIDE INJ 40 MG in SYRINGE 0 ML IV ONE (09:15)
--- NOTE | 2018-02-09 09:16 | Cardiology Follow-Up ---
Subjective Date of Service: Feb 09, 2018. Pt evaluation today including: conversation w/ patient, physical exam, chart review, lab review, review of studies, review of inpatient medication list, conversation w/ attending (Communicated with Dr. Pérez of primary hospitalist service.) History of Present Illness Mr. 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 He states that he has been hospitalized 3 separate occasions for GI bleeding, including present hospitalization. He has received blood transfusion during all 3 hospitalizations. He denies chest pain, syncope, near-syncope, or edema. He continues to have melena, but very small amounts per nursing staff. He is short of breath and describes orthopnea. This began late yesterday. He denies palpitations although telemetry demonstrates paroxysmal, nonsustained VT (13 beats) and probable atrial tachycardia. Review of systems: As above. Medications Current Inpatient Medications Medications (Trade) Dose Ordered Sig/Cole Route Start Time Stop Time Status Last Admin Dose Admin Acetaminophen (Tylenol Tab) 650 mg Q4H PRN PO 02/05/18 03:15 03/07/18 03:14 Ondansetron HCl (Zofran Inj) 4 mg Q6H PRN IV 02/05/18 03:15 03/07/18 03:14 Albuterol Sulfate (Ventolin 0.083% 2.5MG/3ML Neb) 2.5 mg QID PRN INH 02/05/18 03:30 03/07/18 03:29 Salmeterol Xinafoate/ Fluticasone (Advair Diskus 100/50 Inh) 1 puff BID INH 02/05/18 09:00 03/07/18 08:59 02/08/18 20:39 1 PUFF Albuterol/ Ipratropium (Duoneb) 3 ml Q6R INH 02/05/18 09:00 03/07/18 08:59 02/09/18 07:03 3 ML Budesonide (Pulmicort Respules 0.5MG/ 2ML Neb Soln) 0.5 mg BIDR INH 02/05/18 08:00 03/07/18 07:59 02/09/18 07:03 0.5 MG Pantoprazole Sodium 40 mg/ Dextrose 100 ml @ 20 mls/hr Q5H IV 02/05/18 05:30 03/07/18 05:29 02/09/18 04:20 20 MLS/HR Potassium Chloride/Sodium Chloride 1,000 ml @ 80 mls/hr [id number] IV 02/08/18 10:45 03/10/18 10:44 02/09/18 03:52 80 MLS/HR Prednisone (PredniSONE TAB) 10 mg QAM PO 02/09/18 09:00 03/11/18 08:59 Furosemide 40 mg/ Syringe 4 ml @ 4 mls/min ONE ONCE IV 02/09/18 09:00 02/09/18 09:01 UNV Metoprolol Succinate (Toprol Xl Tab) 25 mg QAM PO 02/09/18 09:00 03/11/18 08:59 UNV Objective Vital Signs Past 12 Hours Date Time Temp Pulse Resp B/P (MAP) Pulse Ox O2 Delivery O2 Flow Rate FiO2 02/09/18 07:03 36.5 66 20 110/64 (79) 96 Nebulizer 02/09/18 07:03 95 20 96 Nasal Cannula 2.0 02/09/18 06:00 Nasal Cannula 2.0 02/09/18 03:56 36.4 93 18 120/79 (93) 93 Room Air 02/09/18 02:23 77 22 95 Room Air 02/08/18 23:59 Room Air 02/08/18 23:53 36.9 96 20 136/87 (103) 91 Room Air Last Recorded Weight-Kilograms: 65.500 Intake & Output 02/08/18 02/09/18 02/10/18 08:00 08:00 08:00 Intake Total 2199 ml 3436 ml Output Total 1400 ml 1250 ml Balance 799 ml 2186 ml Physical Exam Gen.: No acute distress. Alert and oriented. HEENT: Anicteric sclera. Neck: JVD alf to the mandible. Hepato-jugular reflux is noted. Cardiac: No ventricular heave. Regular. Normal S1-S2. No murmurs, rubs, or gallops. Pulmonary: Decreased breath sounds throughout with expiratory wheezing bilaterally. Abdomen: Soft, nontender, nondistended, with normoactive bowel sounds. No bruits noted. Extremities: 2+ radial pulses bilaterally. 2+ posterior tibialis pulses bilaterally. No edema or cyanosis. Psychiatric: Affect appears appropriate. Data Laboratory Results: Last 24 Hours Test 02/08/18 18:29 02/09/18 06:57 Hemoglobin 8.3 g/dL 7.9 g/dL Hematocrit 24.4 % 22.5 % White Blood Count 10.86 K/uL Red Blood Count 2.53 M/uL Mean Corpuscular Volume 88.9 fL Mean Corpuscular Hemoglobin 31.2 pg Mean Corpuscular Hemoglobin Concent 35.1 g/dl RDW Standard Deviation 57.4 fL RDW Coefficient of Variation 19.0 % Platelet Count 161 K/uL Mean Platelet Volume 9.7 fL Nucleated RBC Absolute Count (auto) 0.06 K/uL Nucleated Red Blood Cells % 0.5 % Sodium Level 144 mmol/L Potassium Level 3.5 mmol/L Chloride Level 117 mmol/L Carbon Dioxide Level 19 mmol/L Anion Gap 8.0 mmol/L Blood Urea Nitrogen 39 mg/dl Creatinine 0.70 mg/dl Est Creatinine Clear Calc Drug Dose 71.7 ml/min Estimated GFR () 104.0 Estimated GFR (Non- 89.8 BUN/Creatinine Ratio 55.4 Random Glucose 85 mg/dl Calcium Level 6.4 mg/dl Telemetry reviewed: Nonsustained VT (13 beats). Atrial tachycardia. Predominantly sinus. Assessment and Plan ASSESSMENT/PLAN: 1. NSTEMI: He did not present with acute coronary syndrome but rather profound anemia due to active GI bleeding. Elevated enzymes are likely secondary to the fact that he has had demand ischemia. Cannot rule out baseline underlying ischemic heart disease however minimal calcifications noted on CT scan. Aspirin is contraindicated while bleeding and he reports hives when taking on a regular basis. Cardiac catheterization is not recommended given active GI bleed. No angina. Will initiate metoprolol today. Consider statin therapy. 2. Cardiomyopathy: May be secondary to profound anemia/acute illness with poor perfusion due to acute GI bleed anemia. His LV systolic function was normal in 2012. Start Metoprolol succinate 25 mg once daily today. Consider MOLLY I in future. 3. Iatrogenic Hypervolemia: His fluid balance is quite positive. He is now short of breath. Lasix 40 mg IV x 1. Goal of at least 1 liter negative today. 4. Pulmonary hypertension: Likely secondary to his documented pulmonary issues. 5. Mitral regurgitation: Non severe. This can be followed over time. This appears to be a chronic issue based on 2013 echo at outside hospital. 6. Ventricular tachycardia and atrial tachycardia/SVT: Starting metoprolol today. Asymptomatic. 7. Acute GI bleed: Melena improving. 8. Disposition: Cardiology will continue to follow. Plan discussed with Dr. Pérez.
[2018-02-09] MEDS: METOPROLOL SUCC 25MG EXT REL TAB PO SCH (09:55)
--- NOTE | 2018-02-09 10:57 | DIAGNOSTIC IMAGING REPORT ---
CHEST ONE VIEW PORTABLE HISTORY: dyspnea COMPARISON: Chest CT and chest x-ray 02/05/2018. FINDINGS: No pneumothorax. No pleural effusions. The heart is stable in size. No evidence for pulmonary edema. Multiple scattered nodular densities are again noted throughout the lungs. There is more confluent opacities within the suprahilar location, left greater than right. This is also unchanged and likely represents progressive massive fibrosis as seen on the prior CT examination. There is associated calcification of the scattered pulmonary nodules. No new consolidations identified. No evidence for pulmonary edema. Bilateral hilar superior retraction, unchanged. IMPRESSION: No significant change compared to the prior study. No acute process. 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 Electronically signed by: Norman Ramos M.D. 02/09/2018 10:56 AM Dictated Date/Time: 02/09/2018 10:53 AM
[2018-02-09 12:04] LABS: HEMOGLOBIN 9.2 g/dL (14.0-18.0)
[2018-02-09] MEDS ORDERED: POTASSIUM CHLORIDE 20 MEQ TABCR PO STA (17:43)
[2018-02-09 20:21] LABS: HEMATOCRIT 23.1 % (42-52); HEMOGLOBIN 7.6 g/dL (14.0-18.0)
[2018-02-10] VITALS (17 sets, daily range): BP systolic 104–136; BP diastolic 57–74; PULSE 50–99; TEMP 36.5–37; O2SAT 89–100
[2018-02-10] MEDS: PANTOprazole INJ 40 MG in DEXTROSE 5% 100ML IV SCH ×4 (00:16→16:29)
[2018-02-10 00:32] LABS: HEMATOCRIT 21.2 % (42-52); HEMOGLOBIN 7.1 g/dL (14.0-18.0)
[2018-02-10] MEDS: ALBUT/IPRATROP 3MG/0.5MG NEB 3 ML VIAL INH SCH ×4 (02:11→18:56)
[2018-02-10] MEDS: BUDESONIDE 0.5 MG/2 ML VIAL (PULMICORT) INH SCH ×2 (06:52→18:57)
[2018-02-10 07:12] LABS: HEMATOCRIT 27.2 % (42-52); HEMOGLOBIN 9.1 g/dL (14.0-18.0); MEAN CELL VOLUME 88.6 fL (80-100); MEAN CORPUSCULAR HEMOGLOBIN 29.6 pg (25-34); MEAN CORPUSCULAR HGB CONC 33.5 g/dl (32-36); MEAN PLATELET VOLUME 9.7 fL (7.4-10.4); NUCLEATED RED BLOOD CELL ABS 0.05 K/uL (0-0); PLATELET COUNT 145 K/uL (130-400); RED CELL DISTRIBUTION WIDTH SD 56.2 fL (36.4-46.3); WHITE BLOOD COUNT 10.59 K/uL (4.8-10.8)
[2018-02-10] MEDS: METOPROLOL SUCC 25MG EXT REL TAB PO SCH (07:57)
[2018-02-10] MEDS: FLUTICASONE/SALMETEROL 100/50 (ADVAIR) 14 PUFF/1 INHALER INH SCH (07:57)
--- NOTE | 2018-02-10 09:13 | Cardiology Follow-Up ---
Subjective Date of Service: Feb 10, 2018. Pt evaluation today including: conversation w/ patient, physical exam, chart review, lab review, review of studies, review of inpatient medication list, conversation w/ attending (Dr. Shelton) History of Present Illness Mr. 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 He has been hospitalized 3 separate occasions for GI bleeding, including present hospitalization. He has received blood transfusion during all 3 hospitalizations. Overnight, he received another 2 units of PRBC for worsening anemia. He continues to feel short of breath but states his symptoms have improved since yesterday. He was diuresed nearly 1 L negative. He slept much better. He denies chest pain, syncope, palpitations, edema. He has not noted any other bleeding. Review of systems: As above. Review of Systems Respiratory: + cough Medications Current Inpatient Medications Medications (Trade) Dose Ordered Sig/Cole Route Start Time Stop Time Status Last Admin Dose Admin Acetaminophen (Tylenol Tab) 650 mg Q4H PRN PO 02/05/18 03:15 03/07/18 03:14 Ondansetron HCl (Zofran Inj) 4 mg Q6H PRN IV 02/05/18 03:15 03/07/18 03:14 Albuterol Sulfate (Ventolin 0.083% 2.5MG/3ML Neb) 2.5 mg QID PRN INH 02/05/18 03:30 03/07/18 03:29 Salmeterol Xinafoate/ Fluticasone (Advair Diskus 100/50 Inh) 1 puff BID INH 02/05/18 09:00 03/07/18 08:59 02/10/18 07:57 1 PUFF Albuterol/ Ipratropium (Duoneb) 3 ml Q6R INH 02/05/18 09:00 03/07/18 08:59 02/10/18 06:52 3 ML Budesonide (Pulmicort Respules 0.5MG/ 2ML Neb Soln) 0.5 mg BIDR INH 02/05/18 08:00 03/07/18 07:59 02/10/18 06:52 0.5 MG Pantoprazole Sodium 40 mg/ Dextrose 100 ml @ 20 mls/hr Q5H IV 02/05/18 05:30 03/07/18 05:29 02/10/18 05:24 20 MLS/HR Potassium Chloride/Sodium Chloride 1,000 ml @ 80 mls/hr [id number] IV 02/08/18 10:45 03/10/18 10:44 Future Hold 02/09/18 03:52 80 MLS/HR Prednisone (PredniSONE TAB) 10 mg QAM PO 02/09/18 09:00 03/11/18 08:59 02/10/18 07:57 10 MG Metoprolol Succinate (Toprol Xl Tab) 25 mg QAM PO 02/09/18 09:15 03/11/18 09:14 02/10/18 07:57 25 MG Furosemide 40 mg/ Syringe 4 ml @ 4 mls/min ONE ONCE IV 02/10/18 09:15 02/10/18 09:16 UNV Furosemide 40 mg/ Syringe 4 ml @ 4 mls/min ONE ONCE IV 02/10/18 14:00 02/10/18 14:01 UNV Objective Vital Signs Past 12 Hours Date Time Temp Pulse Resp B/P (MAP) Pulse Ox O2 Delivery O2 Flow Rate FiO2 02/10/18 08:15 36.5 99 18 114/71 (85) 100 Nasal Cannula 2.0 02/10/18 06:52 50 18 94 Nasal Cannula 2.0 02/10/18 06:31 92 18 115/74 98 1.0 02/10/18 05:36 36.8 92 17 122/73 98 1.0 02/10/18 05:13 36.8 90 18 112/71 99 1.0 02/10/18 04:52 36.6 82 21 109/70 99 1.0 02/10/18 04:35 36.7 90 19 112/72 99 1.0 02/10/18 03:56 87 20 108/69 99 1.0 02/10/18 03:00 37.0 92 18 104/67 99 1.0 02/10/18 02:30 36.6 90 17 112/65 96 1.0 02/10/18 02:15 36.7 92 20 105/67 100 1.0 02/10/18 02:12 91 18 92 Nasal Cannula 2.0 02/10/18 02:00 36.5 91 22 105/65 93 1.0 02/09/18 23:48 36.3 90 21 124/73 (90) 95 Nasal Cannula 1.0 Last Recorded Weight-Kilograms: 63.800 Intake & Output 02/09/18 02/10/18 02/11/18 08:00 08:00 08:00 Intake Total 3436 ml 2765 ml Output Total 1250 ml 3645 ml Balance 2186 ml -880 ml Physical Exam Gen.: No acute distress. Alert and oriented. HEENT: Anicteric sclera. Neck: Mild JVD. Hepato-jugular reflux is noted. Cardiac: No ventricular heave. Regular. Normal S1-S2. No audible murmurs, rubs, or gallops. Pulmonary: Decreased breath sounds throughout with expiratory wheezing bilaterally. Abdomen: Soft, nontender, nondistended, with normoactive bowel sounds. No bruits noted. Extremities: 2+ radial pulses bilaterally. 2+ posterior tibialis pulses bilaterally. No edema or cyanosis. Psychiatric: Affect appears appropriate. Data Laboratory Results: Last 24 Hours Test 02/09/18 11:46 02/09/18 20:05 02/10/18 00:15 02/10/18 06:41 Hemoglobin 9.2 g/dL 7.6 g/dL 7.1 g/dL 9.1 g/dL Hematocrit 28.0 % 23.1 % 21.2 % 27.2 % White Blood Count 10.59 K/uL Red Blood Count 3.07 M/uL Mean Corpuscular Volume 88.6 fL Mean Corpuscular Hemoglobin 29.6 pg Mean Corpuscular Hemoglobin Concent 33.5 g/dl RDW Standard Deviation 56.2 fL RDW Coefficient of Variation 18.0 % Platelet Count 145 K/uL Mean Platelet Volume 9.7 fL Nucleated RBC Absolute Count (auto) 0.05 K/uL Nucleated Red Blood Cells % 0.5 % Telemetry personally reviewed: 1 episode of SVT but no ventricular tachycardia noted. Otherwise, sinus rhythm. ECG personally reviewed. ECG 02/09/2018 at 2:09 p.m.: Sinus rhythm with PVC 91 bpm. RBBB. Chest x-ray 02/09/2018: No significant change per Radiology. 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 Assessment and Plan ASSESSMENT/PLAN: 1. NSTEMI: He did not present with acute coronary syndrome but rather profound anemia due to active GI bleeding. PA likely secondary to demand ischemia Cannot rule out baseline underlying ischemic heart disease; there were minimal calcifications noted on CT scan. Aspirin is contraindicated while bleeding and he reports hives when taking on a regular basis. Cardiac catheterization is not recommended given active GI bleed. He continues to deny angina despite recurrent anemia. Continue beta-jatin. Consider statin therapy. 2. Cardiomyopathy: May be secondary to profound anemia/acute illness with poor perfusion due to acute GI bleed anemia. Cannot rule out ischemic heart disease as the etiology. His LV systolic function was normal in 2013. Tolerating metoprolol succinate 25 mg daily. This can be titrated over time. Consider MOLLY I in future but would hold off with recurrent bleeding, to avoid precipitating hypotension if bleeding worsens. 3. Iatrogenic Hypervolemia: His fluid balance is quite positive. He was positive greater than 7 L yesterday for his hospital stay and is now still positive approximately 6.3 L. He did diurese with 1 dose of Lasix yesterday and his breathing has improved. He received more blood overnight however. Give Lasix 40 mg IV twice daily today and can reassess tomorrow. Would try to keep fluid balance-1 to 2 L today. 4. Pulmonary hypertension: Likely secondary to his documented pulmonary issues. 5. Mitral regurgitation: Non severe. This can be followed over time. This appears to be a chronic issue based on 2013 echo at outside hospital. 6. Ventricular tachycardia and atrial tachycardia/SVT: No further wide complex tachycardia/VT after initiating beta-jatin yesterday but did have 1 episode of nonsustained SVT. He is asymptomatic. Continue beta-jatin. This will be titrated over time given his cardiomyopathy. 7. Acute GI bleed: He received another 2 units of PRBC overnight for a total of 6 so far this hospitalization. 8. Disposition: Cardiology will continue to follow. Plan discussed with Dr. Shelton. Primary team and Gastroenterology are considering transfer to another facility due to ongoing blood loss anemia.
[2018-02-10] MEDS ORDERED: FUROSEMIDE INJ 40 MG in SYRINGE 0 ML IV ONE ×2 (09:15→14:00)
[2018-02-10 09:23] LABS: CALCIUM 6.4 mg/dl (8.5-10.1); CREATININE 0.69 mg/dl (0.60-1.40); POTASSIUM 3.6 mmol/L (3.5-5.1)
--- NOTE | 2018-02-10 10:46 | Gastroenterology Progress Note ---
Progress Note Date of Service: Feb 10, 2018 Subjective Pt evaluation today including: conversation w/ patient, physical exam, chart review, lab review, review of inpatient medication list Pt's Hgb down again to 7, received 2U PRBC (6U total since admission), responded up to 9 this AM. He is still dyspneic but said breathing a bit better. Denies any CP, abd pain, n/v. Cannot tell if he's having BMs but said when he urinates he may have small amount stool incontinence. No BMs noted in I& O. Review of Systems Constitutional: No fever, No chills Respiratory: + shortness of breath (improved), No cough Cardiac: No chest pain Abdomen: No pain, No nausea, No vomiting Medications Current Inpatient Medications Medications (Trade) Dose Ordered Sig/Cole Route Start Time Stop Time Status Last Admin Dose Admin Acetaminophen (Tylenol Tab) 650 mg Q4H PRN PO 02/05/18 03:15 03/07/18 03:14 Ondansetron HCl (Zofran Inj) 4 mg Q6H PRN IV 02/05/18 03:15 03/07/18 03:14 Albuterol Sulfate (Ventolin 0.083% 2.5MG/3ML Neb) 2.5 mg QID PRN INH 02/05/18 03:30 03/07/18 03:29 Salmeterol Xinafoate/ Fluticasone (Advair Diskus 100/50 Inh) 1 puff BID INH 02/05/18 09:00 03/07/18 08:59 02/10/18 07:57 1 PUFF Albuterol/ Ipratropium (Duoneb) 3 ml Q6R INH 02/05/18 09:00 03/07/18 08:59 02/10/18 06:52 3 ML Budesonide (Pulmicort Respules 0.5MG/ 2ML Neb Soln) 0.5 mg BIDR INH 02/05/18 08:00 03/07/18 07:59 02/10/18 06:52 0.5 MG Pantoprazole Sodium 40 mg/ Dextrose 100 ml @ 20 mls/hr Q5H IV 02/05/18 05:30 03/07/18 05:29 02/10/18 10:33 20 MLS/HR Potassium Chloride/Sodium Chloride 1,000 ml @ 80 mls/hr [id number] IV 02/08/18 10:45 03/10/18 10:44 Future Hold 02/09/18 03:52 80 MLS/HR Prednisone (PredniSONE TAB) 10 mg QAM PO 02/09/18 09:00 03/11/18 08:59 02/10/18 07:57 10 MG Metoprolol Succinate (Toprol Xl Tab) 25 mg QAM PO 02/09/18 09:15 03/11/18 09:14 02/10/18 07:57 25 MG Furosemide 40 mg/ Syringe 4 ml @ 4 mls/min ONE ONCE IV 02/10/18 14:00 02/10/18 14:01 Objective Vital Signs Date Time Temp Pulse Resp B/P (MAP) Pulse Ox O2 Delivery O2 Flow Rate FiO2 02/10/18 08:15 36.5 99 18 114/71 (85) 100 Nasal Cannula 2.0 02/10/18 06:52 50 18 94 Nasal Cannula 2.0 02/10/18 06:31 92 18 115/74 98 1.0 02/10/18 05:36 36.8 92 17 122/73 98 1.0 02/10/18 05:13 36.8 90 18 112/71 99 1.0 02/10/18 04:52 36.6 82 21 109/70 99 1.0 02/10/18 04:35 36.7 90 19 112/72 99 1.0 02/10/18 03:56 87 20 108/69 99 1.0 02/10/18 03:00 37.0 92 18 104/67 99 1.0 02/10/18 02:30 36.6 90 17 112/65 96 1.0 02/10/18 02:15 36.7 92 20 105/67 100 1.0 02/10/18 02:12 91 18 92 Nasal Cannula 2.0 02/10/18 02:00 36.5 91 22 105/65 93 1.0 02/09/18 23:48 36.3 90 21 124/73 (90) 95 Nasal Cannula 1.0 02/09/18 20:00 Nasal Cannula 2.0 02/09/18 19:18 91 18 97 Nasal Cannula 3.0 02/09/18 19:03 36.5 79 20 105/66 (79) 99 Nasal Cannula 2.0 02/09/18 16:00 Nasal Cannula 02/09/18 15:19 36.4 93 18 100/62 (75) 94 Nasal Cannula 2.0 02/09/18 14:19 89 20 98 Nasal Cannula 2.0 02/09/18 12:24 36.6 98 18 149/78 (101) 99 Physical Exam General Appearance: WD/WN, + mild distress (appears dyspneic) Eyes: normal inspection, PERRL, EOMI Neck: supple, no JVD, trachea midline Respiratory/Chest: + wheezing (mild on bases), + pertinent finding (appears somewhat dyspneic) Cardiovascular: regular rate, rhythm, no gallop, no murmur Abdomen: normal bowel sounds, non tender, soft Extremities: normal inspection, no pedal edema, no calf tenderness Neurologic/Psych: alert, normal mood/affect, oriented x 3 Skin: normal color, no jaundice, no rash Laboratory Results Last 24 Hours Test 02/09/18 11:46 02/09/18 20:05 02/10/18 00:15 02/10/18 06:41 Hemoglobin 9.2 g/dL 7.6 g/dL 7.1 g/dL 9.1 g/dL Hematocrit 28.0 % 23.1 % 21.2 % 27.2 % White Blood Count 10.59 K/uL Red Blood Count 3.07 M/uL Mean Corpuscular Volume 88.6 fL Mean Corpuscular Hemoglobin 29.6 pg Mean Corpuscular Hemoglobin Concent 33.5 g/dl RDW Standard Deviation 56.2 fL RDW Coefficient of Variation 18.0 % Platelet Count 145 K/uL Mean Platelet Volume 9.7 fL Nucleated RBC Absolute Count (auto) 0.05 K/uL Nucleated Red Blood Cells % 0.5 % Sodium Level 144 mmol/L Potassium Level 3.6 mmol/L Chloride Level 114 mmol/L Carbon Dioxide Level 23 mmol/L Anion Gap 6.0 mmol/L Blood Urea Nitrogen 36 mg/dl Creatinine 0.69 mg/dl Est Creatinine Clear Calc Drug Dose 72.7 ml/min Estimated GFR () 104.6 Estimated GFR (Non- 90.3 BUN/Creatinine Ratio 52.1 Random Glucose 84 mg/dl Calcium Level 6.4 mg/dl Assessment and Plan 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 Troponin up with EKG changes. EGD done on 02/07 showed Grade B esophagitis w hematin in body, + duodenal bulb ulcer treated w epinephrine and gold. His Hgb down to 7 again last night, given another 2u PRBC (6u total) responded up to 9. He reports less SOB but still appears dyspneic. He denies any BMs but does get small amt of stool incontinence when urinating. No BM charted in I&O. - Completed PPI gtt x 72 hrs after EGD then maintain at PO form BID. - Monitor H/H and transfuse prn. - Primary team going to transfer to tertiary care center given on going anemia in setting of duodenal ulcer also complicated cardiopulmonary disease. I have seen and examined the patient with NICHOL Quarles. 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 Treated initially with 72 hours ppi, had egd done on 02/07 showing duodenal ulcer with adherent clot- partially lavaged, and treated with epi + goldprobe. With no overt melena thereafter but with reports of some dark tinged stool, fluctuating hgb requiring transfusion. With issues related to sob now - being diuresed and being given steroids, on oxygen. Patient agreeable to transfer to a tertiary center given pulm/heart issues. May need embolization in the future if persistent melena. He was thought to be higher risk for anesthesia at this center and per discussion with medicine/cardiology- thought to be better served in an area with IR/additional cardiology back up. He is now awaiting transfer.
--- NOTE | 2018-02-10 13:17 | Discharge Summary ---
Discharge Summary Date of Service Feb 10, 2018. 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 Hematin (altered blood/wfjydq-wiosvj-zrzq material) was found in the gastric fundus and body. One non-bleeding cratered duodenal ulcer with adherent clot was found in the first portion of the duodenum at the duodenal sweep. The lesion was 4 mm in largest dimension. An adherent clot was noted that was partially removed with lavage. With lavage there was no visible vessel identified but clot remained adherent. The area was successfully injected with 3 mL of a 1:10,000 solution of epinephrine for hemostasis. Coagulation for hemostasis using a gold probe was successful. There was no active bleeding at the end of the procedure. The second portion of the duodenum was normal. Impression: - LA Grade A esophagitis. - Hematin (altered blood/rutbww-hkyjmh-acro material) in the gastric fundus and gastric body. - One duodenal ulcer with adherent clot with partial removal of the clot with lavage was seen at the duodenal sweep. Injected with 3 cc of epi and then treated with a gold probe. No active bleeding was noted at the end of the procedure. - Normal second portion of the duodenum. Recommendation: - Restart PPI infusion and continue for 72 hours. - NPO for the rest of today. Thereafter, if no bleeding, can consider a clear liquid diet. - Return to hospital [facility] when discharge criteria have been met. - The patient's cardiac status was noted to be stable during the procedure and immediately post procedure. Lucero Jonas MD ECHOCARDIOGRAM 02/05/18 * -- Conclusions -- * 1. Mildly dilated left ventricle with severely reduced systolic function. Estimated EF 25-30%. Akinesis of the mid to distal inferior, mid inferolateral , mid to distal anterior, distal anterolateral, and apical segments. Otherwise , global hypokinesis with relative sparing of the basal lateral wall. Mild concentric left ventricular hypertrophy. Type 1 diastolic dysfunction. Septal flattening during diastole may suggest right ventricular volume overload. * 2. The right ventricle is mildly dilated. The right ventricular systolic function is normal as assessed by tricuspid annular plane systolic excursion ( TAPSE) (normal >1.5 cm). * 3. The left atrium is moderately dilated. * 4. Mild aortic regurgitation. * 5. Mild to moderate anteriorly directed mitral regurgitation. * 6. Moderate pulmonary hypertension suggested with estimated RVSP of 50 mmHg. * 7. No prior study available for comparison. Consultations: Gastroenterology Cardiology Medication Reconciliation New Medications: Metoprolol Succinate (Metoprolol Succinate ER) 25 Mg Tabcr 25 MG PO QAM for 30 Days, #30 TAB Continued Medications: Albuterol Hfa (Ventolin Hfa) 200 Puffs/[id number] Mcg Aers 2-4 PUFFS INH Q6H PRN for SOB/Wheezing, #1 INHALER Albuterol Sulf (Proventil 0.083% 2.5MG/3ML) 2.5 Mg/3 Ml Nebu 2.5 MG INH QID PRN for SOB/Wheezing, EA Fluticasone Prop/Salmeterol (Advair Diskus 100/50 60 Dose) Unknown Strength Aerp 1 PUFF INH BID Prednisone (Prednisone) 10 Mg Tab 10 MG PO DAILY Discontinued Medications: Prednisone (Prednisone) 10 Mg Tab 10 MG PO UD PRN for breathing exacerbation may take additional prednisone up to 40mg per day for 3 days then decrease to 30mg for 3 days,20mg for 3 days then 10mg for 3 days Discharge Exam Mr. Gonzalez is resting in bed comfortably on day of transfer, s/p 2 units PRBC's this morning. Still complains of some shortness of breath, no cough. Reports no new bloody stools this AM. ROS See HPI for pertinent positives and negatives. Otherwise denies new headache, vision change, chest pain, abdominal pain, loose or bloody stools, dysuria, or numbness tingling in extremities. GENERAL: Awake, alert, well-appearing, in no distress. Nasal cannula in place. HENT: Normocephalic, atraumatic. EYES: Normal conjunctiva. Sclera non-icteric. NECK: Supple. Full range of motion. no JVD RESPIRATORY: diminished at bases CARDIAC: Regular rate, normal rhythm. Extremities warm and well perfused. Pulses equal. ABDOMEN: Soft, non-distended. No tenderness to palpation. No rebound or guarding. No masses. LOWER EXTREMITIES: Calves are equal size bilaterally and non-tender. No edema. No discoloration. NEURO: No motor deficits noted. SKIN: No rash or jaundice noted. Hospital Course Oscar Gonzalez is a pleasant 77 year old male here with 3 days of lethargy prior to admission in the setting of melena and hematemesis. Of note, patient also had increased his daily prednisone use from 10 to 40 mg for several days. Patient was not on chronic acid-reducing prophylactic therapy prior to admission. 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 While here, gastroenterology was consulted, performed EGD which found bleeding duodenal ulcer, and also requested a cardiology consultation prior to EGD given his elevated troponin. ECHO and EGD results as above. For his NSTEMI it was thought likely due to profound anemia/demand. Cardiomyopathy, again due to profound illness, recommend metoprolol succinate. Pt then developed shortness of breath and new oxygen requirement, and while CXR negative for acute changes, it was thought to be due to iatrogenic hypervolemia from 4 albeit therapeutic PRBC transfusions. Given 40 Lasix IV with net neg 1 L diuresis. Despite cauterization and transfusions, pt's hemoglobin went from 9.2 to 7.6 then 7.1 yesterday, was given additional 2 units of blood. Dyspnea and oxygen requirement persist today. Decision was made that patient will need tertiary level care for bleed. For his lung disease, recommend continue Duonebs Q6H Scheduled. + Albuterol PRN , Pulmicort BID. Of note, X-ray results show numerous chronic fibrotic lung changes - Chest CT report shows pneumoconiosis and emphysema. Will need to weigh risk/benefits of further prednisone therapy given bleeding ulcer disease. For NSTEMI and cardiomyopathy, recommend continue medical management as pt is not deemed good candidate for catheterization. Aspirin is contraindicated and BB /ACEI may compromise his hemodynamics- metoprolol succinate recommended. DVT Proph: SCDs given here and chemical ppx obviously contraindicated. Attending spoke with receiving doctor at [facility] and both parties agree that tertiary care necessary at this point for further management. Minda Beto [facility] Resident PGY-2 Total Time Spent: Greater than 30 minutes This includes examination of the patient, discharge planning, medication reconciliation, and communication with other providers. Discharge Instructions Please refer to the electronic Patient Visit Report (Discharge Instructions) for additional information. Additional Copies To Clemente Mims Resident Tracking Resident Involvement: Resident Care Provided Care Provided: Adult [facility] Medicine Assessment/Plan Resident Physician Supervision Note: I was present with Dr. Pérez during the history and exam. I discussed the case with the resident and agree with the findings and plan as documented in the note. Any exceptions or clarifications are listed here: Pt seen and examined at bedside. Bowel movements remain dark. Hemoglobin drop overnight necessitating further transfusion. His breathing is still poor, though he has responded well to diuresis w/ UOP. He reports he has minimal cough , and very mild LE swelling bilaterally. On examination, S1/S2 nl RRR no MCG. CTAB w/ decreased BS at the b/l bases w/o rales/wheeze. Abd is NT/ND BS+ve After discussion with gastroenterology, the concern is worsening cardiac status in the setting of recurrent transfusions and persistent GIB. With that in mind, [facility] was called for transfer of care w/ availability of tertiary GI services and IR embolisation, if needed. 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 Will transfer to [facility] w / accepting physician on the hospitalist team.
[2018-02-10] MEDS ORDERED: TPRSR25 PO (13:30)
--- NOTE | 2018-02-10 13:33 | Discharge Instructions ---
Discharge Instructions Date of Service Feb 10, 2018. Admission Reason for Admission: Gi Bleed Discharge Discharge Diagnosis / Problem: GI bleed, NSTEMI Discharge Goals Goal(s): Decrease discomfort, Improve disease control, Diagnostic testing, Therapeutic intervention Activity Recommendations Activity Level: Up Ad Sarah Therapies: Physical Therapy, Occupational Therapy Weightbearing Status: Left weightbearing (as tolerated), Right weightbearing ( as tolerated) Lifting Limitations: none Exercise/Sports Limitations: as tolerated Shower/Bathe: no limitations . Additional Information Patient informed of condition: Yes Advance Directives: No DNR: No Level of Care: Other Communicable Disease: No Prognosis: Stable Oxygen at (LPM): 2 Grimaldo Catheter: No Instructions / Follow-Up Instructions / Follow-Up Oscar Gonzalez is a pleasant 77 year old male here with 3 days of lethargy prior to admission in the setting of melena and hematemesis. Of note, patient also had increased his daily prednisone use from 10 to 40 mg for several days. Patient was not on chronic acid-reducing prophylactic therapy prior to admission. 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 While here, gastroenterology was consulted, performed EGD which found bleeding duodenal ulcer, and also requested a cardiology consultation prior to EGD given his elevated troponin. ECHO and EGD results as above. For his NSTEMI it was thought likely due to profound anemia/demand. Cardiomyopathy, again due to profound illness, recommend metoprolol succinate. Pt then developed shortness of breath and new oxygen requirement, and while CXR negative for acute changes, it was thought to be due to iatrogenic hypervolemia from 4 albeit therapeutic PRBC transfusions. Given 40 Lasix IV with net neg 1 L diuresis. Despite cauterization and transfusions, pt's hemoglobin went from 9.2 to 7.6 then 7.1 yesterday, was given additional 2 units of blood. Dyspnea and oxygen requirement persist today. Decision was made that patient will need tertiary level care for bleed. For his lung disease, recommend continue Duonebs Q6H Scheduled. + Albuterol PRN , Pulmicort BID. Of note, X-ray results show numerous chronic fibrotic lung changes - Chest CT report shows pneumoconiosis and emphysema. Will need to weigh risk/benefits of further prednisone therapy given bleeding ulcer disease. For NSTEMI and cardiomyopathy, recommend continue medical management as pt is not deemed good candidate for catheterization. Aspirin is contraindicated and BB /ACEI may compromise his hemodynamics- metoprolol succinate recommended. DVT Proph: SCDs given here and chemical ppx obviously contraindicated. Attending spoke with receiving doctor at [facility] and both parties agree that tertiary care necessary at this point for further management. Minda Pérez Family and Community Medicine Resident PGY-2 Current Hospital Diet Patient's current hospital diet: Clear Liquid Diet, AHA Diet (Heart Healthy) Discharge Diet Recommended Diet: Clear Liquid Diet, AHA Diet (Heart Healthy) Procedures Procedures Performed: EGD with epi injection and bipolar cautery. Pending Studies Studies pending at discharge: no Medical Emergencies . Who to Call and When: Medical Emergencies: If at any time you feel your situation is an emergency, please call 911 immediately. . Non-Emergent Contact Non-Emergency issues call your: Primary Care Provider . . "Provider Documentation" section prepared by Minda Pérez. . Core Measure Problem Core Measures: None
== END 2018-02-10 19:55 | disposition short-term general hospital (02) | DRG 377 ==
LOC: C.EDB 23:35 → C.2T 02-05 03:19 → ENRESERV 02-05 03:26
PROVIDERS: ADMIT Hospitalist; ATTEND Family Medicine
DX: K92.2 Gastrointestinal hemorrhage, unspecified (principal); I21.4 Non-ST elevation (NSTEMI) myocardial infarction; I24.8 Other forms of acute ischemic heart disease; E27.40 Unspecified adrenocortical insufficiency; I42.9 Cardiomyopathy, unspecified; D62 Acute posthemorrhagic anemia; J44.9 Chronic obstructive pulmonary disease, unspecified; Z88.6 Allergy status to analgesic agent; Z88.5 Allergy status to narcotic agent; J60 Coalworker's pneumoconiosis; R00.0 Tachycardia, unspecified; K26.4 Chronic or unspecified duodenal ulcer with hemorrhage